=== PATIENT | female | born 1950 | race Hispanic/Latino ===

== ENCOUNTER 2018-12-31 12:41 | Emergency (ER) | payer OTHER ==
--- NOTE | 2018-12-31 13:30 | RAD REPORT ---
EXAM DESCRIPTION: CT - Head Brain Wo Cont - 12/31/2018 1:16 pm CLINICAL HISTORY: Breast cancer/generalize weakness COMPARISON: None. TECHNIQUE: Computed axial tomography of the head was obtained. IV contrast was not requested. All CT scans are performed using dose optimization technique as appropriate and may include automated exposure control or mA/KV adjustment according to patient size. FINDINGS: An intracranial bleed is not seen . The ventricles are normal in caliber. No extra-axial fluid collection is noted. Fluid within the sinuses/ mastoids is not seen. IMPRESSION: No acute intracranial abnormality is seen. If patient's symptoms persist MRI of the bra in would be recommended.
--- NOTE | 2018-12-31 13:57 | RAD REPORT ---
EXAM DESCRIPTION: [facility] Single View12/31/2018 1:25 pm CLINICAL HISTORY: fever COMPARISON: 2013 FINDINGS: The lungs appear clear of acute infiltrate. The heart is normal size IMPRESSION: No acute abnormalities displayed
[2018-12-31 14:05] LABS: Absolute Lymphocytes (CBC) 1.5 K/uL (0.7-4.9); Basophils % 0.6 % (0-1.3); Hematocrit 39.1 % (36.0-45.0); Lymphocytes % 14.3 % (15.3-44.8); MPV 7.7 fL (7.6-11.3); RBC Red Blood Cell Count 4.39 M/uL (3.86-4.86)
[2018-12-31 14:24] LABS: ALT/SGPT 32 U/L (12-78); AST/SGOT 23 U/L (15-37); Albumin 3.7 g/dL (3.4-5.0); Alkaline Phosphatase 56 U/L (45-117); BUN Blood Urea Nitrogen 24 mg/dL (7-18); Bicarbonate 28 mmol/L (21-32); Bilirubin Direct 0.1 mg/dL (0-0.2); Bilirubin Total 0.3 mg/dL (0.2-1.0); Glucose Level 130 mg/dL (74-106); NT PRO-BNP 207 pg/mL (<125); Potassium 3.7 mmol/L (3.5-5.1); Protein, Total 6.9 g/dL (6.4-8.2); Sodium Level 140 mmol/L (136-145); Troponin (Emerg Dept Use Only) < 0.02 ng/mL (0.0-0.045)
[2018-12-31 14:28] LABS: Protime INR 1.11
[2018-12-31 15:25] LABS: Urine Blood 2+ (NEG); Urine Glucose NEGATIVE (NEG); Urine Protein TRACE (NEG); Urine pH 5.5 (5.0-7.0)
[2018-12-31 15:27] LABS: Urine Bacteria LOADED /HPF (<20); Urine Culture Reflex Order REFLEXED
--- NOTE | 2018-12-31 16:20 | EDPHYS ---
Physician Documentation [facility] Name: Cyndee Nuñez Age: 68 yrs Sex: Female : 1950 Arrival Date: 12/31/2018 Time: 12:48 Bed 13 Private MD: ED Physician Ronn Bonilla HPI: 12/31 13:05 This 68 yrs old Female presents to ER via EMS with complaints of General cp Weakness. 13:05 general weakness. Onset: The symptoms/episode began/occurred today, 1 hour(s) ago. cp 13:05 Severity of symptoms: in the emergency department the symptoms have improved mildly. cp Family reports patient c/o feeling hot all over and then becoming weak all over. Historical: - Allergies: 12:52 No Known Allergies; em - Home Meds: 13:59 provastatin 20 mg daily [Active]; lisinopril 40 mg Oral tab 1 tab once daily [Active]; tw2 metformin 1,000 mg Oral tab daily [Active]; Levemir 25 units in the AM, 30 units in the PM subcutaneous [Active]; hydrochlorothiazide 12.5 mg Oral cap 1 cap once daily [Active]; glipizide 5 mg Oral tab 1 tab once daily [Active]; alendronate 70 mg Oral tab 1 tab monthly [Active]; - PMHx: 12:52 breast cancer; Diabetes - IDDM; Hypertension; ADD/ADHD; em - PSHx: 12:52 Mastectomy, Right; em - Immunization history:: Adult Immunizations up to date. - Social history:: Smoking status: Patient/guardian denies using tobacco. - Ebola Screening: : Patient negative for fever greater than or equal to 101.5 degrees Fahrenheit, and additional compatible Ebola Virus Disease symptoms Patient denies exposure to infectious person Patient denies travel to an Ebola-affected area in the 21 days before illness onset No symptoms or risks identified at this time. ROS: 13:10 Constitutional: Negative for body aches, chills, fatigue, fever, poor PO intake. cp 13:10 Eyes: Negative for injury, pain, redness, and discharge. cp 13:10 ENT: Negative for drainage from ear(s), ear pain, sore throat, difficulty swallowing, difficulty handling secretions. 13:10 Cardiovascular: Negative for chest pain, edema, palpitations. 13:10 Respiratory: Negative for cough, shortness of breath, wheezing. 13:10 Abdomen/GI: Negative for abdominal pain, nausea, vomiting, and diarrhea, constipation, black/tarry stool, rectal bleeding. 13:10 : Negative for urinary symptoms. 13:10 Neuro: Positive for dizziness, general weakness, Negative for altered mental status, headache, syncope, visual changes. 13:10 All other systems are negative. Exam: 13:15 Constitutional: The patient appears in no acute distress, alert, awake, cp non-diaphoretic, non-toxic, well developed, well nourished. 13:15 Head/Face: Normocephalic, atraumatic. cp 13:15 Eyes: Periorbital structures: appear normal, Pupils: equal, round, and reactive to light and accomodation, Extraocular movements: intact throughout, Conjunctiva: normal, no exudate, no injection, Sclera: no appreciated abnormality, Lids and lashes: appear normal, bilaterally. 13:15 ENT: External ear(s): are unremarkable, Ear canal(s): are normal, clear, TM's: bulging, is not appreciated, bilaterally, dullness, bilaterally, erythema, is not appreciated, bilaterally, Nose: is normal, Mouth: Lips: moist, Oral mucosa: pink and intact, moist, Posterior pharynx: is normal, airway is patent, no erythema, no exudate. 13:15 Neck: ROM/movement: is normal, is supple, without pain, no range of motions limitations, no nuchal rigidity. 13:15 Chest/axilla: Inspection: normal, Palpation: is normal, no crepitus, no tenderness. 13:15 Cardiovascular: Rate: normal, Rhythm: regular, Edema: is not appreciated, JVD: is not appreciated. 13:15 Respiratory: the patient does not display signs of respiratory distress, Respirations: normal, no use of accessory muscles, no retractions, no splinting, no tachypnea, labored breathing, is not present, Breath sounds: are clear throughout, no decreased breath sounds, no stridor, no wheezing. 13:15 Abdomen/GI: Inspection: abdomen appears normal, Bowel sounds: active, all quadrants, Palpation: abdomen is soft and non-tender, in all quadrants, rebound tenderness, is not appreciated, voluntary guarding, is not appreciated, involuntary guarding, is not appreciated. 13:15 Back: pain, is absent, ROM is normal. 13:15 Skin: no rash present. 13:15 Neuro: Orientation: to person, place \T\ time. Mentation: is normal, Cerebellar function: is grossly normal, Motor: moves all fours, strength is normal, Sensation: is normal. 14:15 ECG was reviewed by the Attending Physician. cp Vital Signs: 12:52 BP 107 / 49; Pulse 71; Resp 18; Temp 98.8(O); Pulse Ox 100% on R/A; Weight 72.57 kg; em Height 5 ft. 4 in. (162.56 cm) (M); Pain 0/10; 13:59 BP 131 / 58; Pulse 71; Resp 17; Pulse Ox 97% on R/A; tw2 15:04 BP 110 / 47; Pulse 63; Resp 17; Pulse Ox 96% on R/A; tw2 15:57 BP 128 / 75; Pulse 66; Resp 17; Temp 98.1; Pulse Ox 97% on R/A; mh5 16:32 BP 122 / 71; Pulse 74; Resp 17; Pulse Ox 97% on R/A; tw2 12:52 Body Mass Index 27.46 (72.57 kg, 162.56 cm) em MDM: 12:56 Patient medically screened. cp 14:00 Differential Diagnosis cardiac arrythmia, electrolyte abnormality, dehydration. cp 16:18 Data reviewed: vital signs, nurses notes, lab test result(s), EKG, radiologic studies, cp CT scan, plain films, and as a result, I will discharge patient. 16:18 Test interpretation: by ED physician or midlevel provider: ECG, plain radiologic cp studies. Counseling: I had a detailed discussion with the patient and/or guardian regarding: the historical points, exam findings, and any diagnostic results supporting the discharge/admit diagnosis, lab results, radiology results, to return to the emergency department if symptoms worsen or persist or if there are any questions or concerns that arise at home. Response to treatment: the patient's symptoms have markedly improved after treatment, and as a result, I will discharge patient. ED course: VSS. Patient reports symptoms improved. Will discharge to home for continued monitoring. 12/31 13:01 Order name: Basic Metabolic Panel; Complete Time: 14:26 cp 12/31 14:26 Interpretation: Normal except: GLUC 130; BUN 24; CRE 1.32; GFR 40. cp 12/31 13:01 Order name: CBC with Diff; Complete Time: 14:26 cp 12/31 14:26 Interpretation: Normal except: AFTAB% 77.3; LYM% 14.3. cp 12/31 13:01 Order name: LFT's; Complete Time: 14:26 cp 12/31 13:01 Order name: Magnesium; Complete Time: 14:26 cp 12/31 13:01 Order name: NT PRO-BNP; Complete Time: 14:26 cp 12/31 14:26 Interpretation: Abnormal: NT PRO-BNP 207. cp 12/31 13:01 Order name: PT-INR; Complete Time: 15:38 cp 12/31 13:01 Order name: Troponin (emerg Dept Use Only); Complete Time: 14: cp 12/31 14:27 Interpretation: TROPED < 0.02; Reviewed. 12/31 13:01 Order name: XRAY Chest (1 view); Complete Time: 14:26 cp 12/31 13:01 Order name: Urine Microscopic Only; Complete Time: 15:38 cp 12/31 13:02 Order name: CT Head Brain wo Cont; Complete Time: 14:26 cp 12/31 15:17 Order name: Urine Dipstick--Ancillary (enter results); Complete Time: 15:38 12/31 15:28 Order name: Urine Culture EDOH 12/31 13:01 Order name: Cardiac monitoring; Complete Time: 14:10 cp 12/31 13:01 Order name: EKG - Nurse/Tech; Complete Time: 14:09 cp 12/31 13:01 Order name: IV Saline Lock; Complete Time: 14:09 cp 12/31 13:01 Order name: Labs collected and sent; Complete Time: 14:09 cp 12/31 13:01 Order name: O2 Per Protocol; Complete Time: 14:09 cp 12/31 13:01 Order name: O2 Sat Monitoring; Complete Time: 14:09 12/31 13:01 Order name: Urine Dipstick-Ancillary (obtain specimen); Complete Time: 15:26 cp EC:15 Rate is 58 beats/min. Rhythm is regular. HI interval is normal. QRS interval is normal. cp QT interval is normal. T waves are Inverted in lead V2. Interpreted by me. Reviewed by me. Administered Medications: 15:42 CANCELLED (ivp available only): Rocephin - (cefTRIAXone) 1 grams IVPB once over 30 tw2 mins; (mix in 50 mL NS) 15:50 Drug: Rocephin 1 grams Route: IV; Rate: bolus; Site: left forearm; tw2 15:55 Follow up: Response: No adverse reaction; IV Status: Completed infusion tw2 Disposition: 12/31/18 16:19 Discharged to Home. Impression: Urinary tract infection, site not specified. - Condition is Stable. - Discharge Instructions: Urinary Tract Infection, Adult. - Prescriptions for Augmentin 875- 125 mg Oral Tablet - take 1 tablet by ORAL route every 12 hours for 7 days; 14 tablet. - Medication Reconciliation Form, Thank You Letter, Antibiotic Education, Prescription Opioid Use form. - Follow up: Private Physician; When: 1 - 2 days; Reason: Recheck today's complaints. - Problem is new. - Symptoms have improved. Addendum: 01/02/2019 08:34 Co-signature as Attending Physician, Ronn Bonilla MD I agree with the assessment and c perez plan of care. Signatures: Dispatcher [employer] [facility] Ronn Bonilla MD MD cha Munoz, Edgar, 3RD MATE 3RD MATE em Ronn Cotto PA PA cp Wise, Tara, RN RN tw2 Corrections: (The following items were deleted from the chart) 12/31 15:43 15:39 Rocephin - (cefTRIAXone) 1 grams IVPB once over 30 mins; (mix in 50 mL NS) tw2 ordered. cp 16:07 15:39 Procalcitonin+C.LAB.BRZ ordered. EDOH EDMS 16:07 15:39 LACTATE+C.LAB.BRZ ordered. EDOH EDMS 16:33 16:19 12/31/2018 16:19 Discharged to Home. Impression: Urinary tract infection, site tw2 not specified. Condition is Stable. Forms are Medication Reconciliation Form, Thank You Letter, Antibiotic Education, Prescription Opioid Use. Follow up: Private Physician; When: 1 - 2 days; Reason: Recheck today's complaints. Problem is new. Symptoms have improved. cp
--- NOTE | 2018-12-31 16:20 | ER ---
Nurse's Notes [facility] Name: Cyndee Nuñez Age: 68 yrs Sex: Female : 1950 Arrival Date: 12/31/2018 Time: 12:48 Bed 13 Private MD: Diagnosis: Urinary tract infection, site not specified Presentation: 12/31 12:49 Presenting complaint: EMS states: called out for feeling hot and weakness that started em at noon, symptoms has resolved, denies pain, denies syncope. Transition of care: patient was not received from another setting of care. Onset of symptoms was December 31, 2018. Risk Assessment: Do you want to hurt yourself or someone else? Patient reports no desire to harm self or others. Initial Sepsis Screen: Does the patient meet any 2 criteria? No. Patient's initial sepsis screen is negative. Does the patient have a suspected source of infection? No. Patient's initial sepsis screen is negative. Care prior to arrival: None. 12:49 Method Of Arrival: EMS: [facility] em 12:55 Acuity: ZEE 3 tw2 Historical: - Allergies: 12:52 No Known Allergies; em - Home Meds: 13:59 provastatin 20 mg daily [Active]; lisinopril 40 mg Oral tab 1 tab once daily [Active]; tw2 metformin 1,000 mg Oral tab daily [Active]; Levemir 25 units in the AM, 30 units in the PM subcutaneous [Active]; hydrochlorothiazide 12.5 mg Oral cap 1 cap once daily [Active]; glipizide 5 mg Oral tab 1 tab once daily [Active]; alendronate 70 mg Oral tab 1 tab monthly [Active]; - PMHx: 12:52 breast cancer; Diabetes - IDDM; Hypertension; ADD/ADHD; em - PSHx: 12:52 Mastectomy, Right; em - Immunization history:: Adult Immunizations up to date. - Social history:: Smoking status: Patient/guardian denies using tobacco. - Ebola Screening: : Patient negative for fever greater than or equal to 101.5 degrees Fahrenheit, and additional compatible Ebola Virus Disease symptoms Patient denies exposure to infectious person Patient denies travel to an Ebola-affected area in the 21 days before illness onset No symptoms or risks identified at this time. Screenin:59 Abuse screen: Denies threats or abuse. Nutritional screening: No deficits noted. tw2 Tuberculosis screening: No symptoms or risk factors identified. Fall Risk Secondary diagnosis (15 points) impaired mobility. Assessment: 13:57 General: Appears in no apparent distress. Behavior is calm, cooperative, appropriate tw2 for age. Pain: Denies pain. Neuro: Level of Consciousness is awake, alert, obeys commands, Oriented to person, place, time, situation, Reports weakness. Cardiovascular: Denies chest pain, shortness of breath, Heart tones S1 S2 Patient's skin is warm and dry. Respiratory: Airway is patent Respiratory effort is even, labored, Respiratory pattern is regular, symmetrical, Breath sounds are clear bilaterally. GI: No signs and/or symptoms were reported involving the gastrointestinal system. Abdomen is round non-distended, Bowel sounds present X 4 quads. : No signs and/or symptoms were reported regarding the genitourinary system. EENT: No signs and/or symptoms were reported regarding the EENT system. Derm: No signs and/or symptoms reported regarding the dermatologic system. Musculoskeletal: Range of motion: intact in all extremities. 15:03 Reassessment: Patient appears in no apparent distress at this time. No changes from tw2 previously documented assessment. Patient and/or family updated on plan of care and expected duration. Pain level reassessed. Patient is alert, oriented x 3, equal unlabored respirations, skin warm/dry/pink. 16:32 Reassessment: Patient appears in no apparent distress at this time. No changes from tw2 previously documented assessment. Patient and/or family updated on plan of care and expected duration. Pain level reassessed. Patient is alert, oriented x 3, equal unlabored respirations, skin warm/dry/pink. Vital Signs: 12:52 BP 107 / 49; Pulse 71; Resp 18; Temp 98.8(O); Pulse Ox 100% on R/A; Weight 72.57 kg; em Height 5 ft. 4 in. (162.56 cm) (M); Pain 0/10; 13:59 BP 131 / 58; Pulse 71; Resp 17; Pulse Ox 97% on R/A; tw2 15:04 BP 110 / 47; Pulse 63; Resp 17; Pulse Ox 96% on R/A; tw2 15:57 BP 128 / 75; Pulse 66; Resp 17; Temp 98.1; Pulse Ox 97% on R/A; mh5 16:32 BP 122 / 71; Pulse 74; Resp 17; Pulse Ox 97% on R/A; tw2 12:52 Body Mass Index 27.46 (72.57 kg, 162.56 cm) em ED Course: 12:48 Patient arrived in ED. em 12:48 Bed in low position. Call light in reach. Adult w/ patient. teletypesetter monitor on. Pulse tw2 ox on. NIBP on. 12:49 Jessica Parmar RN is Primary Nurse. tw2 12:51 Ronn Cotto PA is PHCP. cp 12:51 Ronn Bonilla MD is Attending Physician. cp 12:52 Arm band placed on. em 12:55 Triage completed. tw2 13:16 CT completed. Patient tolerated procedure well. Patient moved to radiology. mw3 13:16 CT Head Brain wo Cont In Process Unspecified. EDMS 13:25 XRAY Chest (1 view) In Process Unspecified. EDMS 13:56 Missed attempt(s): 22 gauge in left wrist. Bleeding controlled, band aid applied, tw2 catheter tip intact. Inserted saline lock: 22 gauge in left forearm, using aseptic technique. Blood collected. 15:26 Urine Microscopic Only Sent. tw2 16:05 No provider procedures requiring assistance completed. tw2 16:33 IV discontinued, intact, bleeding controlled, No redness/swelling at site. Pressure tw2 dressing applied. Administered Medications: 15:42 CANCELLED (ivp available only): Rocephin - (cefTRIAXone) 1 grams IVPB once over 30 tw2 mins; (mix in 50 mL NS) 15:50 Drug: Rocephin 1 grams Route: IV; Rate: bolus; Site: left forearm; tw2 15:55 Follow up: Response: No adverse reaction; IV Status: Completed infusion tw2 Outcome: 16:19 Discharge ordered by MD. cp 16:32 Discharged to home ambulatory, with family. tw2 16:32 Condition: stable 16:32 Discharge instructions given to patient, family, Instructed on discharge instructions, follow up and referral plans. medication usage, Demonstrated understanding of instructions, follow-up care, medications, Prescriptions given X 1. 16:33 Patient left the ED. tw2 Addendum: 01/03/2019 08:18 Addendum: Culture Results: Positive urine culture. No further action required. Bacteria a a5 sensitive to prescribed antibiotic. Signatures: Dispatcher [employer] Cy Fagan, PODIATRIC ASSISTANT PODIATRIC ASSISTANT Lorri De Luna, RN RN aa5 Ronn Cotto PA PA cp Wise, Tara RN RN tw2 Cyndee Hermosillo 5 Ilana Quiñones 3
[2018-12-31 16:41] VITALS: TEMP 98.1; O2SAT 97
[2018-12-31 16:43] VITALS: BP 122/71
== END 2018-12-31 16:33 | disposition home or self-care (01) ==
LOC: ER 12:41
DX: N39.0 Urinary tract infection, site not specified (principal); E11.9 Type 2 diabetes mellitus without complications; I10 Essential (primary) hypertension; Z85.3 Personal history of malignant neoplasm of breast
CPT/HCPCS: 36415; 70450; 71045; 80048; 80076; 81003; 81015; 83735; 83880; 84484; 85025; 85610; 87077; 87086; 87088; 87186; 96374; 99285

== ENCOUNTER 2023-02-28 12:18 | Emergency (ER) | payer OTHER ==
--- OUTSIDE RECORDS SUMMARY | 2023-02-28 12:23 | XMS REPORT | Continuity of Care Document ---
:1950 Author Organization [facility] t Address [address] [place] [address] [place] [id number] Care Team Providers Name Role Phone MARY MONTAGUE Primary Care Physician Unavailable MK HONG Attending Clinician Unavailable KATHRYN ALLISON Attending Clinician Unavailable [email or web address] Attending Clinician Unavailable BOAZ BELLA Attending Clinician Unavailable LAB90 Attending Clinician Unavailable 39, HOLTER Attending Clinician Unavailable Kathryn Allison DO Attending Clinician Gustavo GARCIA Attending Clinician Unavailable Gustavo Diaz Attending Clinician Cinthia Landeros Attending Clinician Damian Benito MD Attending Clinician DAMIAN BENITO Attending Clinician Unavailable MK HONG Admitting Clinician Unavailable ENRIQUE_[email or web address]_S Admitting Clinician Unavailable Gustavo GARCIA Admitting Clinician Unavailable Payers Payer Name Policy Type Policy Number Effective Date Expiration Date [place] gore [facility] [id number] 2019 ALL 00:00:00 WELLCARE TXP CLASSIC 7 [id number] 2021 NO PREMIUM R2T 00:00:00 [facility] [place] [id number] 2020 00:00:00 [facility] [id number] 2019 00:00:00 Problems Condition Condition Condition Status Onset Resolution Last Treating Co mments Source Name Details Category Date Date Treatment Clinician Date Well adult Well adult Disease Active Gustavo westfall exam exam 4-18 Seybold 00:00: - 00 Externa l Overweight Overweight Disease Active Gustavo westfall (BMI (BMI 4-18 Seybold 25.0-29.9) 25.0-29.9) 00:00: - 00 Externa l History of History of Disease Active 2021-04 Gustavo westfall tobacco tobacco 1-04 Seybold use use 00:00: - 00 Externa l PVD PVD Disease Active 2021-04 Sindy (periphera (periphera 0-12 Se ybold l vascular l vascular 00:00: - disease) disease) 00 [employer] a l 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 depressive depressive l disorder disorder without without prior prior episode episode Acute Acute Disease Active Sindy non-recurr non-recurr 8-30 Se ybold ent ent 00:00: - maxillary maxillary 00 Exte rna sinusitis sinusitis l Gastroesop Gastroesop Disease Active Gustavo westfall hageal hageal 6-29 Seybold reflux reflux 00:00: - disease disease 00 Externa without without l esophagiti esophagiti s s History of History of Disease Active Gustavo westfall recurrent recurrent 4-21 Seyb old UTI UTI 00:00: - (urinary (urinary 00 [employer] a tract tract l infection) infection) Type 2 Type 2 Disease Active Sindy diabetes diabetes 2-18 Seybol d mellitus, mellitus, 00:00: with with 00 long-term long-term current current use of use of insulin insulin Primary Primary Disease Active Sindy hypertensi hypertensi 2-18 Se ybold on on 00:00: - 00 Externa l 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 2-18 Se ybold athy athy 00:00: - associated associated 00 Ex terna with type with type l 2 diabetes 2 diabetes mellitus mellitus 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 K elsey d d 2-18 Seybold osteoporos osteoporos 00:00: - is without is without 00 Ex terna current current l pathologic pathologic al al fracture fracture 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 Seybold disease disease 00:00: - involving involving 00 Exte rna chipewwa chipewwa l coronary coronary artery artery without without angina angina pectoris pectoris 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 Seybold disease disease 00:00: - involving involving 00 Exte rna chipewwa chipewwa l coronary coronary artery of artery of chipewwa chipewwa heart heart without without angina angina pectoris pectoris Malignant Malignant Disease Active Suresh sey neoplasm neoplasm 2-18 Seybol d of [place] 00:00: - portion of portion of 00 Ex terna right right l breast in breast in female, female, estrogen estrogen receptor receptor positive positive Mixed Mixed Disease Active Sindy hyperlipid hyperlipid 2-18 Se ybold emia emia 00:00: - 00 Externa l PAD PAD Disease Recurre [facility] (periphera (periphera nce 5-15 Jaimie kes l artery l artery 00:00: Medica l disease) disease) 00 Center No known No known Disease Unive rs active active ity of problems problems [facility] Allergies, Adverse Reactions, Alerts Allergy Allergy Status Severity Reaction(s) Onset Inactive Treating Comm ents Source Name Type Date Date Clinician NO KNOWN Allergy Active [facility] NO KNOWN Drug Active [facility] ALLERGRACHAEL Class ity of S [facility] Social History Social Habit Start Date Stop Date Quantity Comments Source [facility] to [facility] History SDOH [facility] Alcohol Binge Medical Z[facility] History SDOH [facility] Alcohol Std Drinks [facility] History SDOH Sindy Yao ld - Alcohol Comment External Gender identity Sindy Se donovan - External History of tobacco Cigarette Smoker Sindy Tran - use External Sexual orientation [facility] History of Social 2022-07-21 2022-07-21 Sindy Tran - function 00:00:00 00:00:00 External Tobacco use and 2022-07-21 2022-07-21 Smokeless Sindy donovan - exposure 00:00:00 00:00:00 tobacco non-user External Education 2021-05-23 2021-05-23 6 Sindy Tran - 00:00:00 00:00:00 External Alcohol intake 2019-08-21 2019-08-[address] [facility] 00:[facility] 00[facility]00 non-drinker of Medical Ce nter alcohol (finding) Cigarettes smoked 2019-08-14 2019-08-[address] [facility] current (pack per 00:00:00 00:00:00 [facility] Center day) - Reported Cigarette 2019-08-14 2019-08-[address] [facility] pack-years 00:00:00 00:00:00 [facility] History SDOH 2019-08-14 2019-08-[address] [facility] Alcohol Frequency 00:00:00 00:00:00 [facility] Sex [birth year] VENECIA Blancas 00:00:00 00:00:00 [facility] Smoking Status Start Date Stop Date Source Ex-smoker 2022-07-21 00:00:00 2022-07-21 00:00:00 Sindy rodrigez - External Never smoker [facility] Medications Ordered Filled Start Stop Current Ordering Indication Dosage Frequency Signature Comments Components Source Medication Medication Date Date Medication? Clinician (SIG) Name Name Anastrozole Yes 1mg Take 1 Serena ey 1 MG oral 8-21 tablet (1 Seybo ld Tablet 07:57: mg total) - 01 by mouth Externa daily. l Aspirin 81 Yes 81mg Take 1 Kelse y MG oral 8-21 tablet (81 Seybol d Tablet 07:57: mg total) - Delayed 01 by mouth Externa Response daily. l Alendronate 2022-0 Yes [id number] TAKE 1 Sindy Sodium 70 8-14 TABLET(70 Seybo ld MG oral 00:00: MG) BY - Tablet 00 MOUTH Externa EVERY 7 l DAYS hydroCHLORO 2022-0 Yes [id number] 12.5mg TAKE 1 Sindy thiazide 8-06 CAPSULE(12 Seybo ld 12.5 MG 00:00: .5 MG) BY - oral 00 MOUTH Externa Capsule EVERY l MORNING Metformin 2022-0 Yes [id number] TAKE 1 K elsey HCl 1000 MG 8-04 TABLET(100 Se ybold oral Tablet 00:00: 0 MG) BY - 00 MOUTH IN Externa THE l MORNING AND IN THE EVENING WITH MEALS Lisinopril 2022-0 Yes [id number] 40mg Take 1 K elsey 40 MG oral 7-27 tablet (40 Sey bold Tablet 00:00: mg total) - 00 by mouth Externa daily l Pravastatin 2022-0 Yes [id number] 80mg Take 1 Sindy Sodium 80 7-27 tablet (80 Seyb old MG oral 00:00: mg total) - Tablet 00 by mouth Externa daily l Omeprazole 2022-0 Yes [id number] TAKE 1 Sindy 40 MG oral 7-05 CAPSULE(40 Sey bold Delayed 00:00: MG) BY - Release 00 MOUTH Externa Capsule DAILY l Amlodipine 2022-0 Yes [id number] TAKE 1 K elsey Besylate 7-05 TABLET(5 Seybold (NORVASC) 5 00:00: MG) BY - MG oral 00 MOUTH Externa Tablet DAILY l Clopidogrel 2022-0 Yes [id number] 75mg Take 1 Sindy Bisulfate 6-22 tablet (75 Seyb old (Plavix) 75 00:00: mg total) - MG oral 00 by mouth Externa Tablet daily l Citalopram 2022-0 Yes [id number] TAKE 1 K elsey Hydrobromid 6-20 TABLET(10 Sey bold e 10 MG 00:00: MG) BY - oral Tablet 00 MOUTH Externa DAILY l Anastrozole 2022-0 Yes 1mg Take 1 Serena ey 1 MG oral 4-18 tablet (1 Seybo ld Tablet 08:03: mg total) - 27 by mouth Externa daily l Aspirin 81 2023-0 Yes 81mg Take 1 Kelse y MG oral 4-18 tablet (81 Seybol d Tablet 08:03: mg total) - Delayed 27 by mouth Externa Response daily l Citalopram Yes [id number] TAKE 1 K elsey Hydrobromid 3-22 TABLET(10 Sey bold e 10 MG 00:00: MG) BY - oral Tablet 00 MOUTH Externa DAILY l Insulin Yes [id number] 35 units Ke lsey Glargine 2-27 subcu Seybold (Lantus 00:00: every a.m. - SoloStar) 00 and 25 Externa 100 UNIT/ML units l subcutaneou subcu s Solution every p.m. Pen-injecto r Insulin Yes [id number] 35 units Ke lsey Glargine 2-27 subcu Seybold (Lantus 00:00: every a.m. - SoloStar) 00 and 25 Externa 100 UNIT/ML units l subcutaneou subcu s Solution every p.m. Pen-injecto r Alendronate Yes [id number] TAKE 1 Sindy Sodium 70 2-09 TABLET(70 Seybo ld MG oral 00:00: MG) BY - Tablet 00 MOUTH Externa EVERY 7 l DAYS Pravastatin Yes [id number] 80mg Take 1 Sindy Sodium 80 1-20 tablet (80 Seyb old MG oral 00:00: mg total) - Tablet 00 by mouth Externa daily l Anastrozole Yes 1mg Take 1 mg K elsey 1 MG oral 1-18 by mouth Seybol d Tablet 08:36: daily - 07 Externa l Aspirin 81 Yes 81mg Take 81 mg K elsey MG oral 1-18 by mouth Seybold Tablet 08:36: daily - Delayed 07 Externa Response l Citalopram 2021-04 Yes [id number] TAKE 1 K elsey Hydrobromid 2-12 TABLET(10 Sey bold e 10 MG 00:00: MG) BY - oral Tablet 00 MOUTH Externa DAILY l Clopidogrel 2021-04 Yes 75mg Take 1 Serena ey Bisulfate 1-07 tablet (75 Seyb old (Plavix) 75 00:00: mg total) - MG oral 00 by mouth Externa Tablet daily l Clopidogrel 2021-04 Yes 75mg Take 1 Serena ey Bisulfate 1-07 tablet (75 Seyb old (Plavix) 75 00:00: mg total) - MG oral 00 by mouth Externa Tablet daily l Anastrozole 2021-04 Yes 1mg Take 1 mg K elsey 1 MG oral 0-12 by mouth Seybol d Tablet 10:13: daily - 00 Externa l Pravastatin Yes [id number] 40mg Take 1 Sindy Sodium 40 9-14 tablet (40 Seyb old MG oral 00:00: mg total) - Tablet 00 by mouth Externa daily l Pravastatin Yes [id number] 40mg Take 1 Sindy Sodium 40 9-14 tablet (40 Seyb old MG oral 00:00: mg total) - Tablet 00 by mouth Externa daily l Citalopram Yes [id number] 10mg Take 1 K elsey Hydrobromid 9-14 tablet (10 Se ybold e 10 MG 00:00: mg total) - oral Tablet 00 by mouth Exte rna daily l Benzonatate Yes [id number] 100mg Q.[id number] Take 1 Sindy (Tessalon 8-30 [id number] capsule S eybold Perles) 100 00:00: 3D (100 mg - MG oral 00 total) by Externa Capsule mouth 3 l times daily as needed for cough Benzonatate Yes [id number] 100mg Q.[id number] Take 1 Sindy (Tessalon 8-30 [id number] capsule S eybold Perles) 100 00:00: 3D (100 mg - MG oral 00 total) by Externa Capsule mouth 3 l times daily as needed for cough Benzonatate 2022- No [id number] 100mg Q.[id number] Take 1 Sindy (Tessalon 8-30 04-18 [id number] capsule Seybold Perles) 100 00:00: 00:00 3D (100 mg - MG oral 00 :00 total) by Externa Capsule mouth 3 l times daily as needed for cough Amoxicillin 0 2021- No [id number] 1{tbl} Take 1 Sindy -Pot 8-30 10-12 tablet by Seybold Clavulanate 00:00: 00:00 mouth 2 - 875-125 MG 00 :00 times Externa oral Tablet daily l Alendronate 2021-0 Yes [id number] 70mg Take 1 Sindy Sodium 70 8-10 tablet (70 Seyb old MG oral 00:00: mg total) - Tablet 00 by mouth Externa every 7 l days Metformin 2021-0 Yes [id number] 1000mg Take 1 Sindy HCl 1000 MG 8-10 tablet Seybol d oral Tablet 00:00: (1,000 mg - 00 total) by Externa mouth in l the morning and 1 tablet (1,000 mg total) in the evening. Take with meals. Lisinopril 2021-0 Yes [id number] 40mg Take 1 K elsey 40 MG oral 8-10 tablet (40 Sey bold Tablet 00:00: mg total) - 00 by mouth Externa daily l hydroCHLORO 2021-0 Yes [id number] 12.5mg Take 1 Sindy thiazide 8-10 capsule Seybold 12.5 MG 00:00: (12.5 mg - oral 00 total) by Externa Capsule mouth l every morning Metformin 2021-0 Yes [id number] 1000mg Take 1 Sindy HCl 1000 MG 8-10 tablet Seybol d oral Tablet 00:00: (1,000 mg - 00 total) by Externa mouth in l the morning and 1 tablet (1,000 mg total) in the evening. Take with meals. Lisinopril 2021-0 Yes [id number] 40mg Take 1 K elsey 40 MG oral 8-10 tablet (40 Sey bold Tablet 00:00: mg total) - 00 by mouth Externa daily l hydroCHLORO 2-0 Yes [id number] 12.5mg Take 1 Sindy thiazide 8-10 capsule Seybold 12.5 MG 00:00: (12.5 mg - oral 00 total) by Externa Capsule mouth l every morning Alendronate 2-0 Yes [id number] 70mg Take 1 Sindy Sodium 70 8-10 tablet (70 Seyb old MG oral 00:00: mg total) - Tablet 00 by mouth Externa every 7 l days Metformin 2-0 Yes [id number] 1000mg Take 1 Sindy HCl 1000 MG 8-10 tablet Seybol d oral Tablet 00:00: (1,000 mg - 00 total) by Externa mouth in l the morning and 1 tablet (1,000 mg total) in the evening. Take with meals. Lisinopril Yes [id number] 40mg Take 1 K elsey 40 MG oral 8-10 tablet (40 Sey bold Tablet 00:00: mg total) - 00 by mouth Externa daily l hydroCHLORO Yes [id number] 12.5mg Take 1 Sindy thiazide 8-10 capsule Seybold 12.5 MG 00:00: (12.5 mg - oral 00 total) by Externa Capsule mouth l every morning Insulin Yes [id number] INJECT 35 Sindy Detemir 7-29 UNITS Seybold (Levemir 00:00: UNDER THE - FlexTouch) 00 SKIN EVERY Ext jeremy 100 UNIT/ML MORNING l subcutaneou AND 25 s Solution UNITS Pen-injecto EVERY r EVENING Insulin Yes [id number] INJECT 35 Sindy Detemir 7-29 UNITS Seybold (Levemir 00:00: UNDER THE - FlexTouch) 00 SKIN EVERY Ext jeremy 100 UNIT/ML MORNING l subcutaneou AND 25 s Solution UNITS Pen-injecto EVERY r EVENING Omeprazole 2021-0 Yes [id number] 40mg Take 1 Sindy 40 MG oral 6-29 capsule Seybol d Delayed 00:00: (40 mg - Release 00 total) by Externa Capsule mouth l daily Amlodipine Yes [id number] 5mg Take 1 K elsey Besylate 5 6-29 tablet (5 Seyb old MG oral 00:00: mg total) - Tablet 00 by mouth Externa daily l Omeprazole Yes [id number] 40mg Take 1 Sindy 40 MG oral 6-29 capsule Seybol d Delayed 00:00: (40 mg - Release 00 total) by Externa Capsule mouth l daily Amlodipine 2021-0 Yes [id number] 5mg Take 1 K elsey Besylate 5 6-29 tablet (5 Seyb old MG oral 00:00: mg total) - Tablet 00 by mouth Externa daily l Omeprazole 0 Yes [id number] 40mg Take 1 Sindy 40 MG oral 6-29 capsule Seybol d Delayed 00:00: (40 mg - Release 00 total) by Externa Capsule mouth l daily Amlodipine Yes [id number] 5mg Take 1 K elsey Besylate 5 6-29 tablet (5 Seyb old MG oral 00:00: mg total) - Tablet 00 by mouth Externa daily l glipiZIDE 5 2021-0 2021- No [id number] 5mg Take 1 Sindy MG oral 6-29 10-12 tablet (5 Seybol d Tablet 00:00: 00:00 mg total) - 00 :00 by mouth Externa daily l (before a meal) Dorzolamide Yes USE 1 DROP Sindy HCl 2 % 6-16 BOTH EYES Seybold ophthalmic 00:00: EVERY 12 - Solution 00 HOURS Externa l Dorzolamide Yes USE 1 DROP Sindy HCl 2 % 6-16 BOTH EYES Seybold ophthalmic 00:00: EVERY 12 - Solution 00 HOURS Externa l Dorzolamide 0 Yes USE 1 DROP Sindy HCl 2 % 6-16 BOTH EYES Seybold ophthalmic 00:00: EVERY 12 - Solution 00 HOURS Externa l Dorzolamide 0 Yes USE 1 DROP Sindy HCl 2 % 6-16 BOTH EYES Seybold ophthalmic 00:00: EVERY 12 - Solution 00 HOURS Externa l Lisinopril 0 2021- No 40mg Take 40 mg Sindy 40 MG oral 2-18 02-18 by mouth Seyb old Tablet 15:07: 00:00 daily 47 :00 Metformin 2021-0 2021- No 1000mg Take 1,000 Sindy HCl 1000 MG 2-18 02-18 mg by Seybol d oral Tablet 15:07: 00:00 mouth 47 :00 Alendronate 2021-0 2021- No 70mg Take 70 mg Sindy Sodium 70 2-18 02-18 by mouth Seybo ld MG oral 15:07: 00:00 every 7 Tablet 47 :00 days glipiZIDE 5 0 Yes 5mg Take 5 mg K elsey MG oral 2-18 by mouth Seybold Tablet 14:17: 55 Anastrozole 0 Yes 1mg Take 1 mg K elsey 1 MG oral 2-18 by mouth Seybol d Tablet 14:17: daily 55 Pravastatin 2021-0 Yes 40mg Take 40 mg Sindy Sodium 40 2-18 by mouth Seybol d MG oral 14:17: daily Tablet 55 hydroCHLORO Yes [id number] 12.5mg Take 1 Sindy thiazide 2-18 capsule Seybold 12.5 MG 00:00: (12.5 mg oral 00 total) by Capsule mouth every morning Alendronate Yes [id number] 70mg Take 1 Sindy Sodium 70 2-18 tablet (70 Seyb old MG oral 00:00: mg total) Tablet 00 by mouth every 7 days Metformin Yes [id number] 1000mg Take 1 Sindy HCl 1000 MG 2-18 tablet Seybol d oral Tablet 00:00: (1,000 mg 00 total) by mouth 2 times daily (with meals) Lisinopril Yes [id number] 40mg Take 1 K elsey 40 MG oral 2-18 tablet (40 Sey bold Tablet 00:00: mg total) 00 by mouth daily Insulin Yes [id number] 35 units K elsey Detemir 2-18 SC every Seybold (Levemir 00:00: am and 25 FlexTouch) 00 units SC 100 UNIT/ML every pm subcutaneou s Solution Pen-injecto r Amlodipine Yes 5mg Take 5 mg Ke lsey Besylate 5 2-13 by mouth Seybo ld MG oral 00:00: daily Tablet 00 Omeprazole 2021- No Sindy 40 MG oral 2-13 02-18 Seybold Delayed 00:00: 00:00 Release 00 :00 Capsule Lantus 2021- No INJECT 35 Kelse y SoloStar 2-07 02-18 UNITS Seybold 100 UNIT/ML 00:00: 00:00 UNDER THE subcutaneou 00 :00 SKIN EVERY s Solution MORNING Pen-injecto AND 25 r UNITS EVERY NIGHT AT BEDTIME DIRECTED cephALEXin 2020-04- No 500mg 500 mg, Un kira (KEFLEX) 2-26 12-26 Oral, ity of capsule 500 23:45: 22:46 [place], 1 [place] 00 :00 dose, On [facility] Branch 03/30/21 at 1745, JENNY
Re ason for Anti-Infec tive: Documented Infection< br>Documen diane Infection Site: Urine
D uration of Therapy: 10 days cephALEXin 2020-04 Yes [id number] 500mg Take 1 Univers (KEFLEX) 2-26 capsule by ity o f 500 mg 00:00: mouth 3 [place] capsule 00 (three) Medical times Branch daily. Cephalexin 2020-04- No 500mg Take 500 K elsey 500 MG oral 2-26 02-18 mg by Seybol d Capsule 00:00: 00:00 mouth 3 00 :00 times daily cephALEXin 2020-04- No [id number] 500mg Take 1 Univers (KEFLEX) 2-26 12-26 capsule by ity of 500 mg 00:00: 00:00 mouth 3 [place] capsule 00 :00 (three) Medical times Branch daily for 10 days. Gabapentin 2020-04 Yes 300mg Take 300 Ke lsey 300 MG oral 1-26 mg by Seybold Capsule 00:00: mouth 2 - 00 times Externa daily l Gabapentin 2020-04 Yes 300mg Take 1 Serena ey 300 MG oral 1-26 capsule Seybo ld Capsule 00:00: (300 mg - 00 total) by Externa mouth 2 l times daily Gabapentin 2020-04 Yes 300mg Take 1 Serena ey 300 MG oral 1-26 capsule Seybo ld Capsule 00:00: (300 mg - 00 total) by Externa mouth 2 l times daily. Gabapentin 2020-04 Yes 300mg Take 300 Ke lsey 300 MG oral 1-26 mg by Seybold Capsule 00:00: mouth 2 00 times daily Gabapentin 2020-04 Yes 300mg Take 300 Ke lsey 300 MG oral 1-26 mg by Seybold Capsule 00:00: mouth 2 - 00 times Externa daily l hydroCHLORO 2020-04- No 1{capsu Take 1 Sindy thiazide - 02-18 le} capsule by Seyb old 12.5 MG 00:00: 00:00 mouth oral 00 :00 every Capsule morning metformin 2020-04 Yes Take by Unive rs HCl 04-06 mouth. ity of (METFORMIN 16:48: [place] ORAL) [address] [place] [address] Branch glipiZIDE 5 2020-04 Yes 5mg Take 5 mg U nivers mg tablet 04-06 by mouth. ity o f 16:48: [place] [address] [place] [address] Branch hydroCHLORO 2020-04 Yes Take by Uni vers thiazide 04-06 mouth. ity of 12.5 mg 16:48: [place] tablet [address] [place] [address] LISINOPRIL 2020-04 Yes Take by Univ ers ORAL -02 mouth. ity of 16:48: [address] ANASTROZOLE 2020-04 Yes Take by Uni vers ORAL -02 mouth. ity of 16:48: [address] metformin 2020-04 Yes Take by Unive rs HCl 02 mouth. ity of (METFORMIN 16:48: [place] ORAL) [address] [place] [address] glipiZIDE 5 2020-04 Yes 5mg Take 5 mg U nivers mg tablet 04-06 by mouth. ity o f 16:48: [address] hydroCHLORO 2020-04 Yes Take by Uni vers thiazide 04-06 mouth. ity of 12.5 mg 16:48: [place] tablet [address] [place] [address] LISINOPRIL 2020-04 Yes Take by Univ ers ORAL -02 mouth. ity of 16:48: [address] ANASTROZOLE 2020-04 Yes Take by Uni vers ORAL 02 mouth. ity of 16:48: [address] benzonatate 2020-04 Yes [id number] 100mg Take 1 Univers (TESSALON 1-02 capsule by ity of VAIBHAV) 100 00:00: mouth [place] mg capsule 00 every 8 Medica l (eight) Branch hours as needed for Cough. benzonatate 2020-04 Yes [id number] 100mg Take 1 Univers (TESSALON 1-02 capsule by ittor of VAIBHAV) 100 00:00: mouth [place] mg capsule 00 every 8 Medica l (eight) Branch hours as needed for Cough. LEVEMIR 2020-04 Yes INJECT 35 Unive rs FLEXTOUCH 0-11 UNITS ity of U-100 00:00: EVERY [place] INSULN 100 00 MORNING Medica l unit/mL (3 AND 25 Branch mL) UNITS injection EVERY NIGHT AT BEDTIME SUBCUTANEO US LEVEMIR 2020-04 Yes INJECT 35 Unive rs FLEXTOUCH 0-11 UNITS ity of U-100 00:00: EVERY [place] INSULN 100 00 MORNING Medica l unit/mL (3 AND 25 Branch mL) UNITS injection EVERY NIGHT AT BEDTIME SUBCUTANEO US gabapentin Yes 300mg Take 300 Un kira 300 mg 8-25 mg by ity of capsule 00:00: mouth 2 [place] (two) Medical times Branch daily. alendronate Yes TAKE 1 Univ ers 70 mg 8-25 TABLET BY ity of tablet 00:00: MOUTH ONCE [place] 00 A WEEK 30 Medical MINUTES Branch BEFORE FIRST FOOD OR BEVERAGE OR MEDICATION OF THE DAY WITH WATER gabapentin 2020-0 Yes 300mg Take 300 Un kira 300 mg 8-25 mg by ity of capsule 00:00: mouth 2 [place] 00 (two) Medical times Branch daily. alendronate Yes TAKE 1 Univ ers 70 mg 8-25 TABLET BY ity of tablet 00:00: MOUTH ONCE [place] 00 A WEEK 30 Medical MINUTES Branch BEFORE FIRST FOOD OR BEVERAGE OR MEDICATION OF THE DAY WITH WATER metFORMIN 2019-0 Yes 1000mg Take 1,[address] [facility] [address] (GLUCOPHAGE 5-15 [facility] by [facility] ) 1000 MG 12:09: mouth 2 Medic al tablet 16 (two) Center times daily with breakfast and dinner. lisinopriL 2019-0 Yes 40mg QD Take [address] (PRINIVIL,Z 5-15 by mouth Luke s ESTRIL) 40 12:09: daily. Medic al MG tablet 16 Center pravastatin 2020-0 Yes 40mg QD Take [address] (PRAVACHOL) 5-15 by mouth Luke s 40 MG 12:09: daily. Medical tablet 16 Center glipiZIDE 2020-0 Yes 5mg QD Take [address] (GLUCOTROL) 5-15 by mouth Luke s 5 MG tablet 12:09: daily. [address] hydroCHLORO 2020-0 Yes 12.5mg QD Take 12.[address] thiazide 5-15 mg by [facility]ukes (HYDRODIURI 12:09: mouth Medic al L) 12.5 MG 16 daily. Center tablet insulin 2020-0 Yes Q.5D Inject [facility] detemir 5-15 subcutaneo [facility] U-100 12:09: us 2 Medical (LEVEMIR 16 (two) Center FLEXTOUCH times U-100 daily 25 INSULN) 100 units in unit/mL (3 AM; 35 mL) InPn Units at injection Night . anastrozole 2020-0 Yes 1mg QD Take [address] (ARIMIDEX) 5-15 by mouth [facility]ukes 1 mg tablet 12:09: daily. [address] alendronate 2020-0 Yes 70mg Take [address] [address] (FOSAMAX) 5-15 by mouth [facility] 70 MG 12:09: every 7 Medical tablet 16 days Take Center in the morning with a full glass of water, on an empty stomach, and do not take anything else by mouth or lie down for the next 30 min. . metFORMIN 2020-0 Yes 1000mg Take 1,[address] (GLUCOPHAGE 5-15 mg by [facility] ) 1000 MG 12:09: mouth 2 Medic al tablet 16 (two) Center times daily with breakfast and dinner. lisinopriL 2020-0 Yes 40mg QD Take [address] (PRINIVIL,Z 5-15 by mouth Luke s ESTRIL) 40 12:09: daily. Medic al MG tablet 16 Center pravastatin 2020-0 Yes 40mg QD Take [address] (PRAVACHOL) 5-15 by mouth Luke s 40 MG 12:09: daily. Medical tablet 16 Center glipiZIDE 2020-0 Yes 5mg QD Take [address] (GLUCOTROL) 5-15 by mouth Luke s 5 MG tablet 12:09: daily. [address] hydroCHLORO 2020-0 Yes 12.5mg QD Take 12.[address] thiazide 5-15 mg by [facility]ukes (HYDRODIURI 12:09: mouth Medic al L) 12.5 MG 16 daily. Center tablet insulin 2020-0 Yes Q.5D Inject [facility] detemir 5-15 subcutaneo [facility] U-100 12:09: usly 2 Medical (LEVEMIR 16 (two) Center FLEXTOUCH times U-100 daily 25 INSULN) 100 units in unit/mL (3 AM; 35 mL) InPn Units at injection Night . anastrozole 2020-0 Yes 1mg QD Take [address] (ARIMIDEX) 5-15 by mouth [facility] 1 mg tablet 12:09: daily. [address] alendronate 2020-0 Yes 70mg Take [address] [address] (FOSAMAX) 5-15 by mouth [facility] 70 MG 12:09: every 7 Medical tablet 16 days Take Center in the morning with a full glass of water, on an empty stomach, and do not take anything else by mouth or lie down for the next 30 min. . Vital Signs Vital Name Observation Time Observation Value Comments Source HEIGHT 2019-06-21 00:00:00 165.1 cm WEIGHT 2019-06-21 00:00:00 71.895 kg Systolic blood 2022-11-23 12:54:00 128 mm[Hg] Sindy Seybold - pressure External Diastolic blood 2022-11-23 12:54:00 62 mm[Hg] Kelse y Seybold - pressure External Heart rate 2022-11-23 12:54:00 76 /min Sindy S eybold - External Body temperature 2022-11-23 12:54:00 36.44 Steffany Serena ey Seybold - External Respiratory rate 2022-11-23 12:54:00 20 /min Serena ey Seybold - External Body height 2022-11-23 12:54:00 152.4 cm Sindy S eybold - External Body weight 2022-11-23 12:54:00 66.497 kg Sindy S eybold - External BMI 2022-11-23 12:54:00 28.63 kg/m2 Sindy S eybold - External Oxygen saturation in 2022-11-23 12:54:00 97 /min Sindy Seybold - Arterial blood by External Pulse oximetry Systolic blood 2022-07-21 13:02:00 129 mm[Hg] Sindy Seybold - pressure External Diastolic blood 2022-07-21 13:02:00 61 mm[Hg] Sureshse y Seybold - pressure External Heart rate 2022-07-21 13:02:00 74 /min Sindy S eybold - External Body temperature 2022-07-21 13:02:00 36.56 Steffany Serena ey Seybold - External Respiratory rate 2022-07-21 13:02:00 14 /min Serena ey Seybold - External Body height 2022-07-21 13:02:00 152.4 cm Sindy S eybold - External Body weight 2022-07-21 13:02:00 64.864 kg Sindy S eybold - External BMI 2022-07-21 13:02:00 27.93 kg/m2 Sindy S eybold - External Oxygen saturation in 2022-07-21 13:02:00 97 /min Sindy Seybold - Arterial blood by External Pulse oximetry Systolic blood 2022-04-22 14:33:00 134 mm[Hg] Sindy Seybold - pressure External Diastolic blood 2022-04-22 14:33:00 68 mm[Hg] Sureshse y Seybold - pressure External Heart rate 2022-04-22 14:33:00 68 /min Sindy S eybold - External Body temperature 2022-04-22 14:33:00 36.28 Steffany Serena ey Seybold - External Respiratory rate 2022-04-22 14:33:00 14 /min Serena ey Seybold - External Body height 2022-04-22 14:33:00 152.4 cm Sindy S eybold - External Body weight 2022-04-22 14:33:00 65.772 kg Sindy S eybold - External BMI 2022-04-22 14:33:00 28.32 kg/m2 Sindy S eybold - External Systolic blood 2022-01-14 15:10:00 132 mm[Hg] Sindy Seybold - pressure External Diastolic blood 2022-01-14 15:10:00 73 mm[Hg] Sureshse y Seybold - pressure External Heart rate 2022-01-14 15:10:00 67 /min Sindy S eybold - External Body temperature 2022-01-14 15:10:00 36.89 Steffany Serena ey Seybold - External Respiratory rate 2022-01-14 15:10:00 13 /min Serena ey Seybold - External Body height 2022-01-14 15:10:00 152.4 cm Sindy S eybold - External Body weight 2022-01-14 15:10:00 68.675 kg Sindy S eybold - External BMI 2022-01-14 15:10:00 29.57 kg/m2 Sindy S eybold - External Systolic blood 2021-05-23 19:58:00 126 mm[Hg] Sindy Seybold pressure Diastolic blood 2021-05-23 19:58:00 84 mm[Hg] Kelse y Seybold pressure Heart rate 2021-05-23 19:58:00 71 /min Sindy S eybold Body temperature 2021-05-23 19:58:00 36.28 Steffany Serena ey Seybold Respiratory rate 2021-05-23 19:58:00 14 /min Serena ey Seybold Body height 2021-05-23 19:58:00 152.4 cm Sindy kumarbosoumya Body weight 2021-05-23 19:58:00 69.4 kg Sindy kumarbosoumya BMI 2021-05-23 19:58:00 29.88 kg/m2 Sindy kumarbosoumya Heart rate 2021-03-30 20:34:00 81 /min [facility] Body temperature 2021-03-30 20:34:00 37.11 Steffany [facility] Respiratory rate 2021-03-30 20:34:00 18 /min [facility] Body weight 2021-03-30 20:34:00 68.04 kg [facility] BMI 2021-03-30 20:34:00 29.29 kg/m2 [facility] Oxygen saturation in 2021-03-30 20:34:00 98 /min [facility]ter[facility] blood by [place] Janalakshmi nolberto Pulse oximetry Branch Systolic blood 2021-03-30 20:34:00 146 mm[Hg] [facility] Diastolic blood 2021-03-30 20:34:00 60 mm[Hg] [facility] Systolic blood 2021-02-04 21:45:00 149 mm[Hg] [facility] Diastolic blood 2021-02-04 21:45:00 78 mm[Hg] [facility] Heart rate 2021-02-04 21:45:00 71 /min [facility] Body temperature 2021-02-04 21:45:00 36.94 Steffany [facility] Respiratory rate 2021-02-04 21:45:00 16 /min [facility] Body height 2021-02-04 21:45:00 152.4 cm [facility] Body weight 2021-02-04 21:45:00 68.04 kg [facility] BMI 2021-02-04 21:45:00 29.29 kg/m2 [facility] Oxygen saturation in 2021-02-04 21:45:00 96 /min [facility] Arterial blood by [employer] nolberto Pulse oximetry Branch HEIGHT 2019-06-21 00:00:00 165.1 cm WEIGHT 2019-06-21 00:00:00 71.895 kg HEIGHT 2019-08-14 00:00:00 165.1 cm WEIGHT 2019-08-14 00:00:00 70.308 kg HEIGHT 2019-08-14 00:00:00 165.1 cm WEIGHT 2019-08-14 00:00:00 70.308 kg Procedures Procedure Date / Time Performed Performing Clinician Natalya PERALTA 2022-01-14 15:43:22 Kathryn Allison ld - External XR CHEST 1 VW 2021-03-30 21:55:08 Shahnaz, [facility] MAGNESIUM 2021-03-30 21:44:00 [facility] TROPONIN I 2021-03-30 21:44:00 [facility] COMP. METABOLIC PANEL 2021-03-30 21:44:00 Gustavo Garcia Marie [facility] ([id number]) Medical Branch CBC WITH DIFF 2021-03-30 21:44:00 [facility] URINALYSIS 2021-03-30 21:44:00 [facility] COVID-19 (ID NOW RAPID 2021-03-30 21:44:00 [facility] TEST[facility]) Medical Branch POCT GLUCOSE 2021-03-30 20:39:00 Doctor Unassigned, No [facility] (AUTOMATED) Name Medical Branch NOTICE OF PRIVACY 2021-03-30 20:16:30 Doctor Unassigned, No [facility] PRACTICES Name [facility] CONSENT/REFUSAL FOR 2021-03-30 20:15:52 Doctor Unassigned, No [facility] DIAGNOSIS AND Name Medical Branch TREATMENT Plan of Care Planned Activity Planned Date Details Comments Source Future Scheduled 2022-12-[address] [facility] 00:00:00 (Season Ended) [code = [facility] INFLUENZA VACCINE (Season Ended)] Future Scheduled 2022-04-[address] [facility] 00:00:00 (12+) [code = Medical Center DEPRESSION SCREENING (12+)] Future Scheduled 2022-04-05 FALLS RISK SCREENING [facility] 00:00:00 [code = FALLS RISK Medical C enter SCREENING] Future Scheduled 2020-08-[address] [facility] Test 00:00:00 Counseling and Medical Cente r Screening (12+) [code = Tobacco Cessation Counseling and Screening (12+)] Future Scheduled 2020-04-[address] [facility] 00:00:00 WELLNESS (YEAR 2 or Medical Center FIRST YEAR if no IPPE) [code = MEDICARE ANNUAL WELLNESS (YEAR 2 or FIRST YEAR if no IPPE)] Future Scheduled 2013 PNEUMOCOCCAL 65+ YRS ([address] [facility] 00:00:00 - PCV) [code = Medical Cente r PNEUMOCOCCAL 65+ YRS (1 - PCV)] Future Scheduled 1998 SHINGLES VACCINES ([address] [facility] 00:00:00 2) [code = SHINGLES Medical Center VACCINES (1 of 2)] Future Scheduled 1967 DTAP/TDAP/TD VACCINES [facility] 00:00:00 (1 - Tdap) [code = Medical C enter DTAP/TDAP/TD VACCINES (1 - Tdap)] Future Scheduled 1966 HEPATITIS C SCREENING [facility] 00:00:00 [code = HEPATITIS C Medical Center SCREENING] Future Scheduled 1948 COVID-19 VACCINE (#1) [facility] 00:00:00 [code = COVID-[address] VACCINE (#1)] Future Scheduled 1948 Screening for malignant [facility] Test 00:00:00 neoplasm of breast Medical C enter (procedure) [code = 733822182] Future Scheduled 1948 CT Colonography (combo) [facility] Test 00:00:00 [code = CT Colonography [facility] (combo)] Future Scheduled 1948 Screening for malignant [facility] Test 00:00:00 neoplasm of colon Medical Ce nter (procedure) [code = 818899531] Future Scheduled 1948 Screening for malignant [facility] Test 00:00:00 neoplasm of colon Medical Ce nter (procedure) [code = 038742590] Future Scheduled 1948 DXA SCAN [code = DXA [facility] Test 00:00:00 SCAN] [facility] Future Scheduled 1948 Screening for malignant [facility] Test 00:00:00 neoplasm of colon Medical Ce nter (procedure) [code = 279647155] Future Scheduled 1948 Screening for malignant [facility] Test 00:00:00 neoplasm of colon Medical Ce nter (procedure) [code = 282134361] Future Scheduled 1948 Sigmoidoscopy [code = [facility] Encounter Admission Attending Care Care Encounter Source Date/Time Date/Time Type Type Clinicians Facility Department ID 2021-01-07 Outpatient ROMULO HONG, [facility] Surgery [id number] SLE 13:33:54 MK 2023-03-04 2023-03-04 Outpatient SINDY ALLISON [id number] Sindy 08:15:00 08:15:00 KATHRYN Seybol d 2023-02-23 2023-02-23 Outpatient SINDY ALLISON [id number] Sindy 08:30:00 08:30:00 KATHRYN Seybol d 2023-02-03 2023-02-03 Outpatient GC_[id number] PRIV PRIV [id number] [facility] 00:00:00 00:00:00 diyala_S [id number] Medic al 2023-01-09 2023-01-09 Outpatient SINDY ALLISON [id number] Sindy 00:00:00 00:00:00 KATHRYN Seybol d 2022-12-24 2022-12-24 Outpatient SINDY JAIN [id number] Sindy 00:00:00 00:00:00 Seybol d 2022-12-07 2022-12-07 Outpatient SINDY ALLISON [id number] Sindy 00:00:00 00:00:00 KATHRYN Seybol d 2022-12-02 2022-12-02 Outpatient SINDY BELLA [id number] Sindy 00:00:00 00:00:00 ATASU Seybol d 2022-11-24 2022-11-24 Outpatient SINDY ALLISON [id number] Sindy 00:00:00 00:00:00 KATHRYN Seybol d 2022-11-24 2022-11-24 Outpatient PREZAS, SINDY JAIN [id number] Sindy 00:00:00 00:00:00 KATHRYN Seybol d 2022-11-23 2022-11-23 Outpatient LAB90 SINDY JAIN [id number] Sindy 08:30:00 08:30:00 Seybol d 2022-11-23 2022-11-23 Outpatient PREZASSINDY [id number] Sindy 08:00:00 08:00:00 KATHRYN Seybol d 2022-11-15 2022-11-15 Outpatient PREZAS, SINDY JIAN [id number] Sindy 00:00:00 00:00:00 KATHRYN Seybol d 2022-11-07 2022-11-07 Outpatient PREZASSINDY [id number] Sindy 00:00:00 00:00:00 KATHRYN Seybol d 2022-11-06 2022-11-06 Outpatient PREZASSINDY [id number] Sindy 00:00:00 00:00:00 KATHRYN Seybol d 2022-10-29 2022-10-29 Outpatient SHAYNESINDY Chen [id number] Sindy 09:30:00 09:30:00 ATASU Seybol d 2022-10-13 2022-10-13 Outpatient PREZASINDY Haney [id number] Sindy 00:00:00 00:00:00 KATHRYN Seybol d 2022-10-06 2022-10-06 Outpatient PREZASSINDY [id number] Sindy 00:00:00 00:00:00 KATHRYN Seybol d 2022-10-01 2022-10-01 Outpatient PREZASSINDY [id number] Sindy 00:00:00 00:00:00 KATHRYN Seybol d 2022-09-22 2022-09-22 Outpatient PREZASINDY Haney [id number] Sindy 00:00:00 00:00:00 KATHRYN Seybol d 2022-09-142022-09-14 Outpatient PREZAS, SINDY JAIN [id number] Sindy 00:00:00 00:00:00 KATHRYN Seybol d 2022-08-20 2022-08-20 Outpatient PREZAS, SINDY JAIN [id number] Sindy 00:00:00 00:00:00 KATHRYN Seybol d 2022-07-21 2022-07-21 Outpatient LAB90 SINDY JAIN [id number] Sindy 09:15:00 09:15:00 Seybol d 2022-07-21 2022-07-21 Outpatient PREZAS, SINDY JAIN [id number] Sindy 08:15:00 08:15:00 KATHRYN Seybol d 2022-06-24 2022-06-24 Outpatient PREZAS, SINDY JAIN [id number] Sindy 00:00:00 00:00:00 KATHRYN Seybol d 2022-06-01 2022-06-01 Outpatient PREZAS, SINDY JAIN [id number] Sindy 00:00:00 00:00:00 KATHRYN Seybol d 2022-05-29 2022-05-29 Outpatient PREZAS, SINDY JAIN [id number] Sindy 00:00:00 00:00:00 KATHRYN Seybol d 2022-05-29 2022-05-29 Outpatient PREZAS, SINDY JAIN [id number] Sindy 00:00:00 00:00:00 KATHRYN Seybol d 2022-05-15 2022-05-15 Outpatient PREZAS, SINDY JAIN [id number] Sindy 00:00:00 00:00:00 KATHRYN Seybol d 2022-05-14 2022-05-14 Outpatient PREZAS, SINDY JAIN [id number] Sindy 00:00:00 00:00:00 KATHRYN Seybol d 2022-04-24 2022-04-24 Outpatient PREZAS, SINDY JAIN [id number] Sindy 00:00:00 00:00:00 KATHRYN Seybol d 2022-04-23 2022-04-23 Outpatient LAB90 SINDY JAIN [id number] Sindy 08:00:00 08:00:00 Seybol d 2022-04-22 2022-04-22 Outpatient SINDY ALLISON SINDY [id number] Sindy 08:45:00 08:45:00 KATHRYN Seybol d 2022-04-10 2022-04-10 Outpatient SINDY BELLASEY [id number] Sindy 09:00:00 09:00:00 ATASU Seybol d 2022-03-25 2022-03-25 Outpatient SINDY JAIN [id number] Sindy 00:00:00 00:00:00 Seybol d 2022-03-24 2022-03-24 Outpatient SINDY JAIN [id number] Sindy 14:15:00 14:15:00 Seybol d 2022-03-24 2022-03-24 Outpatient SINDY JAIN [id number] Sindy 13:15:00 13:15:00 Seybol d 2022-03-24 2022-03-24 Outpatient SINDY JAIN [id number] Sindy 13:00:00 13:00:00 Seybol d 2022-03-24 2022-03-24 Outpatient SINDY JAIN [id number] Sindy 12:00:00 12:00:00 Seybol d 2022-03-16 2022-03-16 Outpatient SINDY ALLISON SINDY [id number] Sindy 00:00:00 00:00:00 KATHRYN Seybol d 2022-03-05 2022-03-05 Outpatient SINDY JAIN [id number] Sindy 14:45:00 14:45:00 Seybol d 2022-03-05 2022-03-05 Outpatient SINDY JAIN [id number] Sindy 13:45:00 13:45:00 Seybol d 2022-03-05 2022-03-05 Outpatient SINDY JAIN [id number] Sindy 13:15:00 13:15:00 Seybol d 2022-03-05 2022-03-05 Outpatient SINDY JAIN [id number] Sindy 12:15:00 12:15:00 Seybol d 2022-02-12 2022-02-12 Outpatient SINDY JAIN [id number] Sindy 08:30:00 08:30:00 Seybol d 2022-02-06 2022-02-06 Outpatient SHAYNE, SINDY JAIN [id number] Sindy 11:00:00 11:00:00 ATASU Seybol d 2022-02-06 2022-02-06 Outpatient 39LISANDRO SINDY JAIN [id number] Sindy 11:00:00 11:00:00 Seybol d 2022-02-02 2022-02-02 Outpatient SHANYE, SINDY JAIN [id number] Sindy 00:00:00 00:00:00 ATASU Seybol d 2022-01-14 2022-01-14 Outpatient PREZAS, SINDY JAIN [id number] Sindy 10:00:00 10:00:00 KATHRYN Seybol d 2022-01-01 2022-01-01 Outpatient PREZAS SINDY JAIN [id number] Sindy 08:30:00 08:30:00 KATHRYN Seybol d 2022-01-01 2022-01-01 Outpatient LAB90 SINDY JAIN [id number] Sindy 08:20:00 08:20:00 Seybol d 2021-12-17 2021-12-17 Outpatient PREZAS, SINDY JAIN [id number] Sindy 10:00:00 10:00:00 KATHRYN Seybol d 2021-12-02 2021-12-02 Office PreStephen hand [id number] Sindy 10:00:00 10:15:00 Visit Kathryn Roland [id number] Se old [id number] [id number] 2021-11-12 2021-11-12 Outpatient PREZAS, SINDY JAIN [id number] Sindy 00:00:00 00:00:00 KATHRYN Seybol d 2021-10-31 2021-10-31 Outpatient PREZASINDY Haney [id number] Sindy 00:00:00 00:00:00 KATHRYN Seybol d 2021-10-01 2021-10-01 Outpatient LAB90 SINDY JAIN [id number] Sindy 09:15:00 09:15:00 Seybol d 2021-10-012021-10-01 Office PrezakoltonStephen [id number] Sindy 08:30:00 09:00:00 Visit Kathryn Roland [id number] Se ven[place] 1.2.7.2.686 [id number] 2021-09-26 2021-09-26 Outpatient PRESINDY HAND [id number] Sindy 08:15:00 08:15:00 KATHRYN Seybol d 2021-09-25 2021-09-25 Outpatient PREZAS, SINDY JAIN [id number] Sindy 00:00:00 00:00:00 KATHRYN Seybol d 2021-09-05 2021-09-05 Outpatient PREZASINDY Haney [id number] Sindy 00:00:00 00:00:00 KATHRYN Seybol d 2021-08-26 2021-08-26 Outpatient PREZASINDY Haney [id number] Sindy 00:00:00 00:00:00 KATHRYN Seybol d 2021-08-21 2021-08-21 Outpatient PREZASSINDY [id number] Sindy 00:00:00 00:00:00 KATHRYN Seybol d 2021-07-14 2021-07-14 Outpatient PREZASINDY Haney [id number] Sindy 00:00:00 00:00:00 KATHRYN Seybol d 2021-07-10 2021-07-10 Outpatient PREZASINDY Haney [id number] Sindy 00:00:00 00:00:00 KATHRYN Seybol d 2021-06-06 2021-06-06 Outpatient LAB90 SINDY JAIN [id number] Sindy 07:55:00 07:55:00 Seybol d 2021-06-06 2021-06-06 Outpatient PREZASINDY Haney [id number] Sindy 00:00:00 00:00:00 KATHRYN Seybol d 2021-06-02 2021-06-02 Outpatient LAB90 SINDY JAIN [id number] Sindy 07:50:00 07:50:00 Seybol d 2021-05-30 2021-05-30 Outpatient LAB90 SINDY SINDY [id number] Sindy 08:15:00 08:15:00 Seybol d 2021-05-28 2021-05-28 Outpatient SINDY ALLISON SINDY [id number] Sindy 00:00:00 00:00:00 KATHRYN Seybol d 2021-05-26 2021-05-26 Outpatient SINDY ALLISON SINDY [id number] Sindy 00:00:00 00:00:00 KATHRYN Seybol d 2021-05-23 2021-05-23 Office Stephen Allison [id number] Sindy 14:00:00 14:45:00 Visit Kathryn Luan 350.1.13.13 Se venus 1.2.7.2.686 [id number] 2021-03-30 2021-03-30 Emergency X Gustavo GARCIA [facility] ERT [id number] Univers 14:46:00 16:51:[address] [facility] 2021-03-30 2021-03-30 Emergency Gustavo Garcia [facility] [id number] Univers 14:46:00 16:51:00 Marie LOPEZ 350.1.13.10 i ty [facility].7.2.686 [id number] [address] 2021-02-04 2021-02-04 Urgent Cinthia Cooley [facility] 1.2.840. 114 [id number] Univers 16:43:24 17:03:24 Damian Merino 350.1.13.10 ity [facility] 4.2.7.2.686 Curly as YUSUF?BLEA [id number] MEDICAL OFFICE BUILDING 2021-02-04 2021-02-04 Outpatient R [facility] [id number] Univers 17:00:00 [facility]:00:[facility] 2021-02-04 2021-02-04 Outpatient Andrew BENITO [facility] [id number] Univers 16:40:00 16:40:00 DAMIAN [facility] 2019-08-14 2019-08-14 Outpatient ROMULO HONG [facility] [id number] [facility] 00:00:00 00:00:00 MK 2019-08-14 2019-08-14 Outpatient [facility] SLE [id number] [facility] 00:00:00 00:00:00 [id number] 2019-08-14 2019-08-14 Outpatient [facility] [id number] [facility] 00:00:00 00:00:00 2019-08-11 2019-08-11 Outpatient ROMULO HONG, [facility] [id number] [facility] 00:00:00 00:00:00 MK 2019-08-11 2019-08-11 Outpatient [facility] [id number] [facility] 00:00:00 00:00:00 [id number] 2019-08-04 2019-08-04 Outpatient [facility] [id number] [facility] 00:00:00 00:00:00 [id number] Results Test Description Test Time Test Comments Results Result Comments Source [facility] 2022-01-14 15:43:32 Test Item Value Reference Range Interpretation Comme nts [facility] left side (test code See_Comment L [Automated message] The system = 41803-7C) which generated this result transmitted ref erence range: 1.40 - 0.90 NA. The reference range was not u sed to interpret this result as normal/abnormal. [employer] right side (test See_Comment P resentation Factors: code = 04642-9F) Hypertensio n, DiabetesExercise Modality: At Re stNormal - 1.40 - 1.00Borderline - 0.99 - 0.90Mild - 0.89 - 0.60Mo derate - 0.59 - 0.30Severe - 0. 29 - 0.00 [Automated mess age] The system which generated this result transmitted ref erence range: 1.40 - 0.90 NA. The reference range was not u sed to interpret this result as normal/abnormal. Lab Interpretation (test code Abnormal = 39804-7) Sindy Jhaveri ExternalTROPONICarlton [id number] 22:19:06 Test Item Value Reference Interpretation Comments Range TROPONIN I (test 0.006 ng/mL See_Comment [Automated code = 4336141302) message] The system which generated this result transmitted reference range : <=0.034. The reference range was not used to interpret this result as normal/abnormal . VICKI (test code = Reference (Normal) VICKI) Range (defined by the 99th percentile reference limit): <= 0.034 ng/mL Note: Cardiac troponin begins to rise 3-4 hours after the onset of ischemia. Repeat in 4-6 hours if the sample was drawn within 3-4 hours of the onset of the symptom and found normal. Diagnosis of myocardial injury is made with acute changes in cTn concentrations with at least one serial sample above the 99th percentile upper reference limit (URL), taken together with the patient's clinical presentation. Biotin has been reported to cause a negative bias, interpret results relative to patient's use of biotin. Lab Interpretation Normal (test code = 26390-3) [facility] Test Item Value Reference Range Interpretation Comments MAGNESIUM (test code = 0215580175) 1.8 mg/dL 1.7-2.4 Lab Interpretation (test code = Normal 34120-5) [facility] (25503)2021-03-30 22:07:43 Test Item Value Reference Range Interpretation Comments NA (test code = 136 mmol/L 135-145 7011305180) K (test code = 4.1 mmol/L 3.5-5.0 1926358134) CL (test code = 97 mmol/L 98-108 L 3367774996) CO2 TOTAL (test code = 28 mmol/L 23-31 7639497656) AGAP (test code = 2-16 1901668550) BUN (test code = 24 mg/dL 7-23 H 3755227444) GLUCOSE (test code = 96 mg/dL 70-110 4952812017) CREATININE (test code = 1.11 mg/dL 0.50-1.04 H 7888681021) TOTAL BILI (test code = 0.3 mg/dL 0.1-1.0 5771746367) CALCIUM (test code = 9.1 mg/dL 8.6-10.6 6573043597) T PROTEIN (test code = 7.6 g/dL 6.3-8.2 8208206094) ALBUMIN (test code = 4.7 g/dL 3.5-5.0 3477790466) ALK PHOS (test code = 95 U/L 34-122 6704040131) ALTv (test code = 14 U/L 5-35 2-6) AST(SGOT) (test code = 22 U/L 13-40 5975509872) eGFR (test code = mL/min/1.73m2 0583981673) VICKI (test code = VICKI) Association of Glomerular Filtration Rate (GFR) and Staging of Kidney Disease* + --+ --+ ------+| GFR (mL/min/1.73 m2) ?| With Kidney Damage ?| ?Without Kidney Damage+ --------+ --------+ +| ?>90 ?| ?Stage one ?| ? Normal ?+ ---+ ---+ -------+| ?60-89 ?| ?Stage two ?| ? Decreased GFR ? + --+ --+ ------+| ?30-59 ?| ?Stage three ?| ? Stage three ? + --+ --+ ------+| ?15-29 ?| ?Stage four ? | ? Stage four ?+ ---+ ---+ -------+| ?<15 (or dialysis) ? ?| ?Stage five ? | ? Stage five ?+ ---+ ---+ -------+ *Each stage assumes the associated GFR level has been in effect for at least three months. ?Stages 1 to 5, with or without kidney disease, indicate chronic kidney disease. Notes: Determination of stages one and two (with eGFR >59mL/min/1.73 m2) requires estimation of kidney damage for at least three months as defined by structural or functional abnormalities of the kidney, manifested by either:Pathological abnormalities or Markers of kidney damage (including abnormalities in the composition of the blood or urine or abnormalities in imaging tests). Lab Interpretation Abnormal (test code = 74552-0) [facility] WITH [id number] 22:06:27 Test Item Value Reference Range Interpretation Comments WBC (test code = See_Comment [Automated 0390-2) message] The sy stem which generated this result transmitted reference range : 4.30 - 11.10 10*3/?L. The reference range was not used to interpret this result as normal/abnormal . RBC (test code = See_Comment [Automated 789-8) message] The sy stem which generated this result transmitted reference range : 3.93 - 5.25 10*6/?L. The reference range was not used to interpret this result as normal/abnormal . HGB (test code = 13.9 g/dL 11.6-15.0 718-7) HCT (test code = 42.4 % 35.7-45.2 4544-3) MCV (test code = 88.7 fL 80.6-95.5 787-2) MCH (test code = 29.1 pg 25.9-32.8 785-6) MCHC (test code = 32.8 g/dL 31.6-35.1 786-4) RDW-SD (test code = 47.8 fL 39.0-49.9 06375-3) RDW-CV (test code = 14.6 % 12.0-15.5 788-0) PLT (test code = See_Comment [Automated 777-3) message] The sy stem which generated this result transmitted reference range : 166 - 358 10*3/ ?L. The reference r nahid was not used to interpret this result as normal/abnormal . MPV (test code = 9.6 fL 9.5-12.9 20794-9) NRBC/100 WBC (test See_Comment [Automat ed code = [id number]) message] The system which generated this result transmitted reference range : 0.0 - 10.0 /100 WBCs. The refer ence range was not u sed to interpret th is result as normal/abnormal . NRBC x10^3 (test code <0.01 See_Comment [Auto mated = [id number]) message] The s ystem which generated this result transmitted reference range : 10*3/?L. The reference range was not used to interpret this result as normal/abnormal . GRAN MAT (NEUT) % 75.9 % (test code = 770-8) IMM GRAN % (test code 0.30 % = [id number]) LYMPH % (test code = 14.6 % 736-9) MONO % (test code = 6.8 % 5905-5) EOS % (test code = 1.9 % 713-8) BASO % (test code = 0.5 % 706-2) GRAN MAT x10^3(ANC) 7.19 10*3/uL 1.88-7.09 H (test code = [id number]) IMM GRAN x10^3 (test 0.03 10*3/uL 0.00-0.06 code = 7716775806) LYMPH x10^3 (test code 1.39 10*3/uL 1.32-3.29 = 731-0) MONO x10^3 (test code 0.65 10*3/uL 0.33-0.92 = 742-7) EOS x10^3 (test code = 0.18 10*3/uL 0.03-0.39 711-2) BASO x10^3 (test code 0.05 10*3/uL 0.01-0.07 = 704-7) Lab Interpretation Abnormal (test code = 20394-2) [facility] GLUCOSE (AUTOMATED)2021-03-30 20:41:47 Test Item Value Reference Range Interpretation Comments POCT GLU (test code = 6382647901) 97 mg/dL 70-110 Lab Interpretation (test code = Normal 15938-7) [facility]-[id number] 09:17:00 Test Item Value Reference Range Interpretation Comments ACTIVATED CLOTTING TIME 285 sec : 74 -137 seconds, (BEAKER) (test code = Hali ne: TESTED AT 441) [facility] [address] [place], [address]: Sound Engineer Audio Control/Techni angle ID = [id number] for LEANNA PEREZ SARS-COV2/RT-PCR ([facility])2019-08-15 17:03:00 Test Item Value Reference Range Interpretation Comments SARS-COV2/RT-PCR (test code = Negative Not Detected, Negative 1295494) SARS-COV-2 PERFORMING LAB CPL (test code = 6733301) BASIC METABOLIC [id number] 12:04:00 Test Item Value Reference Range Interpretation Comments SODIUM (BEAKER) 136 meq/L 136-145 (test code = 381) POTASSIUM (BEAKER) 4.4 meq/L 3.5-5.1 Specimen slightly (test code = 379) hemolyzed CHLORIDE (BEAKER) 100 meq/L 98-107 (test code = 382) CO2 (BEAKER) (test 26 meq/L 22-29 code = 355) BLOOD UREA NITROGEN 10 mg/dL 7-21 (BEAKER) (test code = 354) CREATININE (BEAKER) 0.84 mg/dL 0.57-1.25 Specimen slightly (test code = 358) hemolyzed GLUCOSE RANDOM 96 mg/dL 70-105 (BEAKER) (test code = 652) CALCIUM (BEAKER) 9.0 mg/dL 8.4-10.2 (test code = 697) EGFR (BEAKER) (test 67 mL/min/1.73 ESTIMA DIANE GFR IS code = 1092) sq m NOT ACCURATE CREATININE CLEARANCE IN PREDICTING GLOMERULAR FILTRATION RATE . ESTIMATED GFR I S NOT APPLICABLE FOR DIALYSIS PATIEN TS. Sound Engineer Audio Control ID - ADMINCBC W/PLT COUNT & AUTO [id number] 11:46:00 Test Item Value Reference Range Interpretation Comments WHITE BLOOD CELL COUNT (BEAKER) 7.2 K/ L 3.5-10.5 (test code = 775) RED BLOOD CELL COUNT (BEAKER) 4.46 M/ L 3.93-5.22 (test code = 761) HEMOGLOBIN (BEAKER) (test code = 12.3 GM/DL 11.2-15.7 410) HEMATOCRIT (BEAKER) (test code = 38.8 % 34.1-44.9 411) MEAN CORPUSCULAR VOLUME (BEAKER) 87.0 fL 79.4-94.8 (test code = 753) MEAN CORPUSCULAR HEMOGLOBIN 27.6 pg 25.6-32.2 (BEAKER) (test code = 751) MEAN CORPUSCULAR HEMOGLOBIN CONC 31.7 GM/DL 32.2-35.5 L (BEAKER) (test code = 752) RED CELL DISTRIBUTION WIDTH 14.4 % 11.7-14.4 (BEAKER) (test code = 412) PLATELET COUNT (BEAKER) (test 254 K/CU MM 150-450 code = 756) MEAN PLATELET VOLUME (BEAKER) 9.1 fL 9.4-12.3 L (test code = 754) NUCLEATED RED BLOOD CELLS 0 /100 WBC 0-0 (BEAKER) (test code = 413) NEUTROPHILS RELATIVE PERCENT 64 % (BEAKER) (test code = 429) LYMPHOCYTES RELATIVE PERCENT 25 % (BEAKER) (test code = 430) MONOCYTES RELATIVE PERCENT 8 % (BEAKER) (test code = 431) EOSINOPHILS RELATIVE PERCENT 3 % (BEAKER) (test code = 432) BASOPHILS RELATIVE PERCENT 0 % (BEAKER) (test code = 437) NEUTROPHILS ABSOLUTE COUNT 4.59 K/ L 1.56-6.13 (BEAKER) (test code = 670) LYMPHOCYTES ABSOLUTE COUNT 1.81 K/ L 1.18-3.74 (BEAKER) (test code = 414) MONOCYTES ABSOLUTE COUNT (BEAKER) 0.54 K/ L 0.24-0.36 H (test code = 415) EOSINOPHILS ABSOLUTE COUNT 0.22 K/ L 0.04-0.36 (BEAKER) (test code = 416) BASOPHILS ABSOLUTE COUNT (BEAKER) 0.03 K/ L 0.01-0.08 (test code = 417) IMMATURE GRANULOCYTES-RELATIVE 0 % 0-1 PERCENT (BEAKER) (test code = 2801) Notes Date/Time Note Provider Source 2022-11-23 07:57:03 [id number]:57:03Formatting of [facility] this note might be different from the original.[place] [id number] [id number]:03:40Nurse [id number] for patient [id number] NoteLNBellin Health's [facility] [facility] [id number]|[id number] [id number]"
[2023-02-28] MEDS ORDERED: HYDROCODONE/APAP 5/325 MG TAB ONE (13:15)
--- NOTE | 2023-02-28 13:45 | EDPHYS ---
Physician Documentation [facility] Name: Cyndee Nuñez Age: 72 yrs Sex: Female : 1950 Arrival Date: 02/28/2023 Time: 12:18 Bed 12 Private MD: Jeremias Allison ED Physician Ronn Bonilla HPI: 02/28 13:01 This 72 yrs old Female presents to ER via Ambulatory with complaints of Wrist snw Injury, Fall Injury. 13:01 Context: The problem was sustained outdoors. Pt was in the garden, tripped and fell, snw broke her fall with her right hand, no head contact, no LOC. Historical: - Allergies: 12:32 No Known Allergies; db - PMHx: 12:32 Diabetes - IDDM; ADD/ADHD; breast cancer; Hypertension; db - PSHx: 12:33 RIGHT MASECTOMY; db - Immunization history:: Adult Immunizations unknown. - Social history:: Smoking status: Patient denies any tobacco usage or history of. ROS: 13:00 Constitutional: Negative for fever, chills, and weight loss, Eyes: Negative for injury, snw pain, redness, and discharge, ENT: Negative for injury, pain, and discharge, Neck: Negative for injury, pain, and swelling, Cardiovascular: Negative for chest pain, palpitations, and edema, Respiratory: Negative for shortness of breath, cough, wheezing, and pleuritic chest pain, Abdomen/GI: Negative for abdominal pain, nausea, vomiting, diarrhea, and constipation, Back: Negative for injury and pain, : Negative for injury, bleeding, discharge, and swelling, Skin: Negative for injury, rash, and discoloration, Neuro: Negative for headache, weakness, numbness, tingling, and seizure, Psych: Negative for depression, anxiety, suicide ideation, homicidal ideation, and hallucinations, 13:00 MS/extremity: Positive for injury or acute deformity, decreased range of motion, pain, of the right wrist, Exam: 12:59 Constitutional: This is a well developed, well nourished patient who is awake, alert, snw and in no acute distress. Head/Face: Normocephalic, atraumatic. Eyes: Pupils equal round and reactive to light, extra-ocular motions intact. Lids and lashes normal. Conjunctiva and sclera are non-icteric and not injected. Cornea within normal limits. Periorbital areas with no swelling, redness, or edema. ENT: Nares patent. No nasal discharge, no septal abnormalities noted. Tympanic membranes are normal and external auditory canals are clear. Oropharynx with no redness, swelling, or masses, exudates, or evidence of obstruction, uvula midline. Mucous membranes moist. Neck: Trachea midline, no thyromegaly or masses palpated, and no cervical lymphadenopathy. Supple, full range of motion without nuchal rigidity, or vertebral point tenderness. No Meningismus. Chest/axilla: Normal chest wall appearance and motion. Nontender with no deformity. No lesions are appreciated. Cardiovascular: Regular rate and rhythm with a normal S1 and S2. No gallops, murmurs, or rubs. Normal PMI, no JVD. No pulse deficits. Respiratory: Lungs have equal breath sounds bilaterally, clear to auscultation and percussion. No rales, rhonchi or wheezes noted. No increased work of breathing, no retractions or nasal flaring. Abdomen/GI: Soft, non-tender, with normal bowel sounds. No distension or tympany. No guarding or rebound. No evidence of tenderness throughout. Back: No spinal tenderness. No costovertebral tenderness. Full range of motion. Skin: Warm, dry with normal turgor. Normal color with no rashes, no lesions, and no evidence of cellulitis. Neuro: Awake and alert, GCS 15, oriented to person, place, time, and situation. Cranial nerves II-XII grossly intact. Motor strength 5/5 in all extremities. Sensory grossly intact. Cerebellar exam normal. Normal gait. Psych: Awake, alert, with orientation to person, place and time. Behavior, mood, and affect are within normal limits. 12:59 Musculoskeletal/extremity: Extremities: grossly normal except: noted in the right wrist: decreased ROM, deformity, swelling, tenderness, +pulses, Vital Signs: 12:29 BP 115 / 61; Pulse 62; Resp 16; Temp 98.2(O); Pulse Ox 97% ; Weight 66.68 kg; Height 5 db ft. 0 in. ; Pain 10/10; 14:06 BP 116 / 62; Pulse 64; Resp 18; Pulse Ox 98% on R/A; db 12:29 Body Mass Index 28.71 (66.68 kg, 152.4 cm) db 12:29 Pain Scale: Adult db Procedures: 14:10 Splinting: Splint applied to right wrist using Orthoglass splint, sling, applied by w tech. Examined by me, post splint application: neurovascular intact, 2+ distal pulses palpable, brisk capillary refill noted, Patient tolerated well. MDM: 12:40 Patient medically screened. snw 13:00 Differential diagnosis: dislocation, closed fracture, contusion. Data reviewed: vital snw signs, nurses notes, radiologic studies. I considered the following discharge prescriptions or medication management in the emergency department Medications were administered in the Emergency Department. See MAR. Counseling: I had a detailed discussion with the patient and/or guardian regarding the historical points, exam findings, and any diagnostic results supporting the discharge/admit diagnosis, radiology results, to return to the emergency department if symptoms worsen or persist or if there are any questions or concerns that arise at home. 13:57 Independent interpretation of the following test(s) in the Emergency Department X-Ray: snw My interpretation is right forearm, radius impaction fracture through articular surface with dorsal displacement without dislocation. Historians other than the Patient: Daughter/Son: Daughter. Response to treatment: the patient's symptoms have mildly improved after treatment. Special discussion: Based on the history and exam findings, there is no indication for further emergent testing or inpatient evaluation. I discussed with the patient/guardian the need to see the orthopedic surgeon for further evaluation of the symptoms. I discussed with the patient/guardian the need to see the primary care provider for further evaluation of the symptoms. 02/28 12:40 Order name: Forearm Right XRAY snw 02/28 12:44 Order name: Sling; Complete Time: 14:06 snw 02/28 12:44 Order name: Ice pack; Complete Time: 14:06 snw 02/28 12:45 Order name: Sugar Tong Forearm Splint; Complete Time: 14:06 snw Administered Medications: 13:05 Drug: HYDROcodone-acetaminophen PO 5 mg-325 mg 1 tabs PO once Route: PO; ll1 14:09 Follow up: Response: No adverse reaction db Disposition Summary: 02/28/23 13:44 Discharge Ordered Notes: Location: Home snw Condition: Stable snw Diagnosis - Fracture of lower end of radius snw - Fall on same level from slipping, tripping and stumbling without subsequent snw striking against object Followup: snw - With: Emergency Department - When: As needed - Reason: Worsening of condition Followup: snw - With: Jeremias Allison DO - When: Tomorrow - Reason: Recheck today's complaints, Continuance of care, Re-evaluation by your physician Discharge Instructions: - Discharge Summary Sheet snw - Cast or Splint Care, Adult snw - RICE Therapy for Routine Care of Injuries snw - How to Use a Sling snw - Forearm Fracture Rehab snw Forms: - Medication Reconciliation Form snw - Thank You Letter snw - Antibiotic Education snw - Prescription Opioid Use snw - Patient Portal Instructions snw - Leadership Thank You Letter snw Prescriptions: - Tramadol 50 mg Oral Tablet - take 1 tablet ORAL route every 8 hours as needed; 12 tablet; Refills: 0, snw Product Selection Permitted Signatures: Dispatcher [employer] EDMS Tata Corrigan FNP-C HYDROPONICS WORKER-Csnw Rula Mercado RN RN ll1 Ambreen Ross RN RN db Corrections: (The following items were deleted from the chart) 12:34 12:32 Allergies: Aspirin; db db
--- NOTE | 2023-02-28 13:45 | ER ---
Nurse's Notes [facility] Name: Cyndee Nuñez Age: 72 yrs Sex: Female : 1950 Arrival Date: 02/28/2023 Time: 12:18 Bed 12 Private MD: Jeremias Allison Diagnosis: Fracture of lower end of radius;Fall on same level from slipping, tripping and stumbling without subsequent striking against object Presentation: 02/28 12:29 Chief complaint: TRIP AND FALL OUTSIDE WATERING PLANTS. HURT RIGHT WRIST. Coronavirus db screen: Vaccine status: Patient reports receiving the 2nd dose of the covid vaccine. Client denies travel out of the [place] in the last 14 days. At this time, the client does not indicate any symptoms associated with coronavirus-19. Ebola Screen: Patient negative for fever greater than or equal to 101.5 degrees Fahrenheit, and additional compatible Ebola Virus Disease symptoms Patient denies exposure to infectious person. Patient denies travel to an Ebola-affected area in the 21 days before illness onset. No symptoms or risks identified at this time. Initial Sepsis Screen: Does the patient meet any 2 criteria? No. Patient's initial sepsis screen is negative. Does the patient have a suspected source of infection? No. Patient's initial sepsis screen is negative. Risk Assessment: Do you want to hurt yourself or someone else? Patient reports no desire to harm self or others. Onset of symptoms was February 28, 2023. 12:29 Method Of Arrival: Ambulatory db 12:29 Acuity: ZEE 3 db Triage Assessment: 12:33 General: Appears in no apparent distress. comfortable, Behavior is calm, cooperative. db Pain: Complains of pain in right hand, RIGHT WRIST. Neuro: Level of Consciousness is awake, alert, obeys commands, Oriented to person, place, time, situation. Musculoskeletal: Circulation, motion, and sensation intact. Capillary refill < 3 seconds, Range of motion: intact in right wrist. Injury Description: Bruise sustained to right arm. Historical: - Allergies: 12:32 No Known Allergies; db - PMHx: 12:32 Diabetes - IDDM; ADD/ADHD; breast cancer; Hypertension; db - PSHx: 12:33 RIGHT MASECTOMY; db - Immunization history:: Adult Immunizations unknown. - Social history:: Smoking status: Patient denies any tobacco usage or history of. Screenin:06 [facility] ED Fall Risk Assessment (Adult) History of falling in the last 3 months, db including since admission No falls in past 3 months (0 pts) Score/Fall Risk Level 0 - 2 = Low Risk Oriented to surroundings, Maintained a safe environment. Abuse screen: Denies threats or abuse. Denies injuries from another. Nutritional screening: No deficits noted. Tuberculosis screening: No symptoms or risk factors identified. Assessment: 14:06 Reassessment: Patient appears in no apparent distress at this time. Patient and/or db family updated on plan of care and expected duration. Pain level reassessed. Patient is alert, oriented x 3, equal unlabored respirations, skin warm/dry/pink. SLING AND ORTHO SPLINT ON AND NEUROVASCULAR INTACT. CAP REFILL <3 Patient states symptoms have improved. Critical care time stopped, patient has stabilized. General: Appears in no apparent distress. comfortable, Behavior is calm, cooperative. Pain: Complains of pain in right wrist. Neuro: Level of Consciousness is awake, alert, obeys commands, Oriented to person, place, time, situation. Respiratory: Airway is patent Respiratory effort is even, unlabored, Respiratory pattern is regular, symmetrical. Vital Signs: 12:29 BP 115 / 61; Pulse 62; Resp 16; Temp 98.2(O); Pulse Ox 97% ; Weight 66.68 kg; Height 5 db ft. 0 in. ; Pain 10/10; 14:06 BP 116 / 62; Pulse 64; Resp 18; Pulse Ox 98% on R/A; db 12:29 Body Mass Index 28.71 (66.68 kg, 152.4 cm) db 12:29 Pain Scale: Adult db ED Course: 12:19 Patient arrived in ED. as 12:20 Jeremias Allison DO is Private Physician. as 12:20 Tata Corrigan FNP-C is PHCP. snw 12:20 Ronn Bonilla MD is Attending Physician. snw 12:32 Triage completed. db 12:33 Arm band placed on Patient placed in an exam room. db 12:35 Ambreen Ross, YAMIL is Primary Nurse. db 13:38 Forearm Right XRAY In Process Unspecified. EDMS 13:43 Jeremias Allison DO is Referral Physician. snw 14:06 Patient has correct armband on for positive identification. Bed in low position. Call db light in reach. Side rails up X 1. Provided Education on: DISCHARGE. Warm blanket given. 14:06 Orthoglass splint: Sugar tong splint applied on right arm. Sling applied to right arm. em1 14:06 No provider procedures requiring assistance completed. Patient did not have IV access db during this emergency room visit. Administered Medications: 13:05 Drug: HYDROcodone-acetaminophen PO 5 mg-325 mg 1 tabs PO once Route: PO; ll1 14:09 Follow up: Response: No adverse reaction db Medication: 14:06 VIS not applicable for this client. db Outcome: 13:44 Discharge ordered by MD. snw 14:06 Discharged to home ambulatory, db 14:06 Condition: stable 14:06 Discharge instructions given to patient, Instructed on discharge instructions, follow up and referral plans. Prescriptions given X 1, 14:09 Patient left the ED. db Signatures: Dispatcher [employer] EDMS Tata Corrigan, BASHIR-C BAG MAKING MACHINE OPERATOR-Deborah Roach Eric em1 Rula Mercado, RN RN ll1 Ambreen Ross, RN RN db Corrections: (The following items were deleted from the chart) 12:34 12:32 Allergies: Aspirin; db db
--- NOTE | 2023-02-28 14:09 | RAD REPORT ---
EXAM DESCRIPTION: RAD - Forearm Right - 02/28/2023 1:36 pm CLINICAL HISTORY: Pain;Smash injury COMPARISON: No comparisons TECHNIQUE: Right forearm, 2 views. FINDINGS: Comminuted distal radius metaphysis fracture with volar apex angulation. Possible intra-ar ticular extension. Mildly displaced fracture at the base of the ulnar styloid. There is no dislocatio n or periosteal reaction noted. Soft tissue swelling about the wrist. No foreign body or other soft tissue abnormality. IMPRESSION: Distal radius fracture and fracture at the base of the ulnar styloid as above.
[2023-02-28 14:14] VITALS: TEMP 98.2
[2023-02-28 14:16] VITALS: BP 116/62; O2SAT 98
== END 2023-02-28 14:09 | disposition home or self-care (01) ==
LOC: ER 12:18
PROC: 2W3CX1Z Immobilization of Right Lower Arm using Splint (ICD-10-PCS; principal; 2023-02-28)
DX: S52.501A Unspecified fracture of the lower end of right radius, initial encounter for closed fracture (principal); W01.0XXA Fall on same level from slipping, tripping and stumbling without subsequent striking against object, initial encounter
CPT/HCPCS: 99283

== ENCOUNTER 2023-03-16 08:26 | Day surgery (SDC) | payer OTHER ==
[2023-03-16] MEDS ORDERED: CEFAZOLIN SODIUM 1 GM/VIAL ONE (08:57)
[2023-03-16] MEDS ORDERED: NA CHLORIDE 0.9% 1,000 ML ONE (08:57)
[2023-03-16 09:28] LABS: Absolute Lymphocytes (CBC) 1.3 K/uL (0.7-4.9); Lymphocytes % 23.1 % (15.3-44.8); MPV 7.3 fL (7.6-11.3); Platelets 294 thou/uL (152-406); RBC Red Blood Cell Count 4.34 M/uL (3.86-4.86)
[2023-03-16 09:29] LABS: Protime INR 1.07
--- NOTE | 2023-03-16 09:32 | RAD REPORT ---
EXAM DESCRIPTION: RAD - Chest Pa And Lat (2 Views) - 03/16/2023 9:26 am CLINICAL HISTORY: PREPROCEDURE SCREENING Chest pain. COMPARISON: Chest Pa And Lat (2 Views) dated 05/03/2020; Chest Single View dated 12/31/2018; CHEST PA AND LAT 2 VIEW dated 11/27/2013; CHEST PA AND LAT 2 VIEW dated 06/22/2012 TECHNIQUE: PA and lateral views of the chest were obtained. FINDINGS: The lungs are hyperexpanded compatible with COPD. The heart is upper limit of normal in si ze. No fracture or aggressive bony process. IMPRESSION: COPD without acute process identified. The USPSTF recommends annual screening for lung cancer with low-dose CT (LDCT) in adults aged 50 to 8 0 years who have a 20 pack-year smoking history and currently smoke or have quit within the past 15 y ears.
[2023-03-16] MEDS ORDERED: dexAMETHasone 10 MG/ML VIAL ONE (10:00)
[2023-03-16] MEDS ORDERED: LIDOCAINE 1% MPF 5 ML VIAL ONE ×2 (10:00→10:50)
[2023-03-16] MEDS ORDERED: FENTANYL CITR 100 MCG/2 ML ONE ×2 (10:00→10:54)
[2023-03-16] MEDS ORDERED: MIDAZOLAM HCL 2 MG/2 ML INJ ONE ×2 (10:01→10:52)
[2023-03-16] MEDS ORDERED: EPINEPHRINE 1 MG/ML VIAL ONE ×2 (10:01→10:50)
[2023-03-16] MEDS ORDERED: dexAMETHasone 4 MG/ML VIAL ONE (10:51)
[2023-03-16] MEDS ORDERED: ONDANSETRON 4 MG/2 ML VIAL ONE (11:01)
[2023-03-16] MEDS ORDERED: propofoL 200 MG/20 ML VIAL IV ONE (11:02)
[2023-03-16] MEDS ORDERED: KETOROLAC 30 MG/ML INJ ONE (11:34)
[2023-03-16] MEDS ORDERED: GLYCOPYRROLATE 0.2 MG/ML SYR ONE (11:51)
--- NOTE | 2023-03-16 12:41 | P.BOP ---
Preoperative diagnosis: right intraarticular distal radius fracture Postoperative diagnosis: right 3 part intraarticular distal radius fracture Primary procedure: ORIF right 3 part intraarticular distal radius fracture Post Graduate Internship: NONE,NONE Estimated blood loss: 5 cc Specimen: none Findings: see dictation Anesthesia: General Complications: None Implants: Acumed 3 hole narrow distal radius locking plate Fluids & blood products: per anesthesia record Transferred to: Recovery Room Condition: Good
--- NOTE | 2023-03-16 12:58 | RAD REPORT ---
EXAM DESCRIPTION: RAD - Fluoroscopy <1 Hour - 03/16/2023 12:51 pm CLINICAL HISTORY: ORIF RIGHT WRIST COMPARISON: None available. FINDINGS: Thirty Images were sent to PACS, documenting hardware positions during the right wrist ope n reduction and internal fixation procedure. No radiologist was available for the procedure, nor will any image interpretation he provided. Please refer to the procedural report for additional details. Fluoroscopy time: 0.3 Minutes. IMPRESSION: Documentation of fluoroscopy utilization as above.
[2023-03-16] MEDS: HYDROMORPHONE HCL 1 MG/ML INJ ONE ×2 (13:15→13:20)
[2023-03-16] MEDS ORDERED: HYDROMORPHONE HCL 1 MG/ML INJ ONE (13:21)
--- NOTE | 2023-03-16 13:33 | RAD REPORT ---
EXAM DESCRIPTION: RAD - Wrist Right 2 View - 03/16/2023 1:23 pm CLINICAL HISTORY: S/P ORIF R WRIST COMPARISON: Forearm Right dated 02/28/2023 TECHNIQUE: Right wrist, 3 views. FINDINGS: Internally fixated distal radius fracture with volar plate and screws. Mildly displaced fr acture tip of the ulnar styloid is stable. There is no dislocation or periosteal reaction noted. No foreign body. Limited soft tissue gas. Volar fiberglass splint IMPRESSION: Postoperative changes of internal fixation of comminuted distal radius fracture.
--- NOTE | 2023-03-16 13:39 | EKG ---
Test Date: 2023-03-16 Test Time: 09:41:46 Director Investment Banking: CHARLINE MEASUREMENT RESULTS: Intervals: Rate: 63 SD: 168 QRSD: 72 QT: 422 QTc: 431 [place]: P: 60 SD: 168 QRS: 7 T: 42 INTERPRETIVE STATEMENTS: Normal sinus rhythm Low voltage QRS Borderline ECG Compared to ECG 12/24/2014 15:51:01 Low QRS voltage now present Electronically Signed On 03-16-23 13:38:37 WARP CHANGER by Stefan Jack
[2023-03-16] MEDS ORDERED: HYDROCODONE/APAP 5/325 MG TAB ONE (13:53)
[2023-03-16 14:59] VITALS: BP 137/54; TEMP 97.4; O2SAT 92
== END 2023-03-16 14:50 | disposition home or self-care (01) ==
LOC: OR 08:26
PROVIDERS: ATTEND Orthopaedic Surgery Sports Medicine
PROC: 0PSH04Z Reposition Right Radius with Internal Fixation Device, Open Approach (ICD-10-PCS; principal; 2023-03-16 11:30)
DX: S52.571A Other intraarticular fracture of lower end of right radius, initial encounter for closed fracture (principal); E11.9 Type 2 diabetes mellitus without complications; I10 Essential (primary) hypertension; K21.9 Gastro-esophageal reflux disease without esophagitis; Z85.3 Personal history of malignant neoplasm of breast
CPT/HCPCS: 93005; 85025; 80048; 36415; 85610; 71046; 73100; 25609; J2704; J2001; J2250; J3010; J1170 ×2; J2405; J7030; J0690; C1713 ×2; 76000; J0171; J1100

== ENCOUNTER 2024-08-16 19:16 | Emergency (ER) | payer OTHER ==
--- NOTE | 2024-08-16 21:02 | RAD REPORT ---
EXAMINATION: ONE VIEW CHEST XR CLINICAL INDICATION: Female, 74 years old.,DYSPNEA TECHNIQUE: Frontal chest projection is submitted. Examination is limited by patient positioning and t echnique. COMPARISON: 03/16/2023 FINDINGS: The lungs are well inflated and clear. No pneumothorax or sizable effusion. The heart is normal in s ize. Mediastinal contours are unremarkable. IMPRESSION: No acute intrathoracic abnormalities.
[2024-08-16 22:31] LABS: Urine Bacteria 20-50 /HPF (<20); Urine Bilirubin NEGATIVE (Negative); Urine Blood 1+ (Negative); Urine Clarity Extremely Turbid (Clear); Urine Color Light-Yellow (Yellow); Urine Crystals Unidentified Few /HPF (None Seen); Urine Culture Reflex Order NOT NEEDED; Urine Glucose NEGATIVE (Negative); Urine Ketones NEGATIVE (Negative); Urine Microscopic Reflex YN ORDER UMIC; Urine Mucus Slight /HPF (None Seen); Urine Nitrite 2+ (Negative); Urine Protein TRACE (Negative); Urine Urobilinogen Normal (Normal); Urine WBC <5 /HPF (<5); Urine Yeast (Budding) Trace /HPF (None Seen)
[2024-08-16 22:33] LABS: PT Prothrombin Time 12.8 SECONDS (10-13.0); Protime INR 1.13
[2024-08-16 22:36] LABS: Absolute Eosinophils 0.1 K/uL (0-0.5); Absolute Lymphocytes (CBC) 1.3 K/uL (0.7-4.9); Absolute Monocytes 0.4 K/uL (0.1-1.3); Absolute Neutrophil 2.1 K/uL (1.8-8.0); Basophils % 0.6 % (0-1.3); Eosinophils % 2.6 % (0-4.4); Hemoglobin 11.5 g/dL (12.0-15.0); Lymphocytes % 34.2 % (15.3-44.8); MCH 25.8 pg (27.0-35.0); MCHC 32.8 g/dL (32.0-36.0); MCV 78.5 fL (80-100); MPV 7.7 fL (7.6-11.3); Monocytes % 10.1 % (3.3-12.3); Neutrophils % 52.5 % (41.7-73.7); Nucleated Red Blood Cells % 0.2 % (0-0); Platelets 240 thou/uL (152-406); RBC Red Blood Cell Count 4.46 M/uL (3.86-4.86); Red Cell Distribution Width 17.1 % (12.1-15.2)
[2024-08-16 22:47] LABS: AST/SGOT 13 U/L (15-37); Albumin 3.7 g/dL (3.4-5.0); Albumin/Globulin Ratio 0.9 (1.1-1.8); Alkaline Phosphatase 75 U/L (45-117); Anion Gap 9.7 mEq/L (5.0-15.0); BUN Blood Urea Nitrogen 15 mg/dL (7-18); Bicarbonate 27 mEq/L (21-32); Bilirubin Total 0.2 mg/dL (0.2-1.0); Globulin 3.9 g/dL (2.3-3.5); Glomerular Filtration Rate 47 ml/min (=/>90); Glucose Level 94 mg/dL (74-106); Lipase 34 U/L (13-75); Magnesium 1.7 mg/dL (1.6-2.4); NT PRO-BNP 325 pg/mL (<450); Potassium 3.7 mEq/L (3.5-5.1); Protein, Total 7.6 g/dL (6.4-8.2); Sodium Level 139 mEq/L (136-145); Troponin High Sensitivity 12.8 pg/mL (<58.9)
[2024-08-16 22:49] LABS: Influenza A Ag Negative; Influenza B Ag Negative; SARS-CoV-2 Antigen Rapid Res Negative (Negative)
[2024-08-16 23:06] LABS: ALT/SGPT < 14 U/L (13-56); Bilirubin Direct < 0.2 mg/dL (0-0.2)
[2024-08-16] MEDS ORDERED: NA CHLORIDE 0.9% 2,000 ML ONE (23:08)
[2024-08-16] MEDS ORDERED: CEFTRIAXONE 1000 MG/VIAL ONE (23:08)
--- NOTE | 2024-08-16 23:11 | ER ---
Nurse's Notes [facility] Name: Cyndee Nuñez Age: 74 yrs Sex: Female : 1950 Arrival Date: 08/16/2024 Time: 19:16 Bed 20 Private MD: Diagnosis: UTI, cough, generalized weakness Presentation: 08/16 19:25 Chief complaint: Patient's son or daughter states: she started feeling fatigue on me1 Wednesday, cough and congestion that started yesterday and c/o sob w/exertion today. Denies fever. Coronavirus screen: Vaccine status: Patient reports receiving the 2nd dose of the covid vaccine. Ebola Screen: No symptoms or risks identified at this time. Initial Sepsis Screen: Does the patient meet any 2 criteria? No. Patient's initial sepsis screen is negative. Does the patient have a suspected source of infection? No. Patient's initial sepsis screen is negative. Risk Assessment: Do you want to hurt yourself or someone else? Patient reports no desire to harm self or others. Onset of symptoms was August 11, 2024. 19:25 Method Of Arrival: Ambulatory [facility] 19:25 Acuity: ZEE 3 me1 Triage Assessment: 19:27 General: Appears ill, well groomed, well developed, well nourished, Behavior is calm, me1 cooperative, appropriate for age. Pain: Denies pain. EENT: Reports nasal congestion since yesterday. Neuro: Level of Consciousness is awake, alert, obeys commands, Oriented to person, place, time, situation, Appropriate for age. Cardiovascular: Patient's skin is warm and dry. Respiratory: Reports shortness of breath on exertion cough that is since yesterday Onset: The symptoms/episode began/occurred yesterday, the patient has mild shortness of breath. GI: No signs and/or symptoms were reported involving the gastrointestinal system. : No signs and/or symptoms were reported regarding the genitourinary system. Derm: Skin is intact, is healthy with good turgor, Skin is pink, warm \T\ dry. Musculoskeletal: No signs and/or symptoms reported regarding the musculoskeletal system. Historical: - Allergies: 19:26 No Known Allergies; me1 - PMHx: 19:26 breast cancer; Diabetes - IDDM; Hypertension; me1 - PSHx: 19:26 RIGHT MASECTOMY; me1 - Immunization history:: Adult Immunizations up to date. - Infectious Disease History:: Denies. - Social history:: Smoking status: Patient/guardian denies using tobacco, but has a distant history of tobacco abuse. Screenin:45 [facility] ED Fall Risk Assessment (Adult) History of falling in the last 3 months, jj7 including since admission No falls in past 3 months (0 pts) Confusion or Disorientation No (0 pts) Intoxicated or Sedated No (0 pts) Impaired Gait No (0 pts) Mobility Assist Device Used No (0 pt) Altered Elimination No (0 pt) Score/Fall Risk Level 0 - 2 = Low Risk Oriented to surroundings, Maintained a safe environment, Educated pt \T\ family on fall prevention, incl call for assistance when getting out of bed, Assessed \T\ reinforced patient's understanding of fall precautions. Abuse screen: Denies threats or abuse. Nutritional screening: No deficits noted. Tuberculosis screening: No symptoms or risk factors identified. Assessment: 21:45 General: Appears in no apparent distress. comfortable, Behavior is calm, cooperative, jj7 appropriate for age. Pain: Denies pain. 21:45 Cardiovascular: Rhythm is regular Chest pain is denied. Respiratory: Reports shortness jj7 of breath cough that is non-productive, Airway is patent Trachea midline Respiratory effort is even, unlabored, Respiratory pattern is regular, symmetrical. 23:00 Reassessment: Patient and/or family updated on plan of care and expected duration. Pain jj7 level reassessed. Patient is alert, oriented x 3, equal unlabored respirations, skin warm/dry/pink. Patient states feeling better. Vital Signs: 19:25 BP 168 / 81; Pulse 74; Resp 19; Temp 98.1; Pulse Ox 93% on R/A; Weight 65.77 kg; Height me1 5 ft. 0 in. ; Pain 0/10; 22:15 BP 138 / 53; Pulse 69; Resp 18; Pulse Ox 95% ; jj7 23:00 BP 136 / 65; Pulse 65; Resp 18; Pulse Ox 95% ; jj7 08/17 00:07 BP 141 / 57; Pulse 63; Resp 20; Temp 97.8; Pulse Ox 95% ; jj7 08/16 19:25 Body Mass Index 28.32 (65.77 kg, 152.4 cm) me1 05/14 19:25 Pain Scale: Adult ma1 ED Course: 08/16 19:19 Patient arrived in ED. gm2 19:26 Triage completed. me1 19:26 Arm band placed on Patient placed in waiting room. me1 19:31 Ronn Bonilla MD is Attending Physician. [facility] 20:01 Attending Physician role handed off by Ronn Bonilla MD sp3 20:01 Madan Aragon MD is Attending Physician. sp3 20:26 XRAY Chest (1 view) In Process Unspecified. EDMS 21:45 Patient has correct armband on for positive identification. Bed in low position. Call jj7 light in reach. Side rails up X 1. Adult w/ patient. Provided Education on: USE OF CALL ALEXANDER. Warm blanket given. 21:50 Client placed on continuous cardiac and pulse oximetry monitoring. NIBP monitoring jj7 applied. school bus monitor on. Pulse ox on. NIBP on. 21:55 First set of blood cultures drawn by me. vk 22:10 Second set of blood cultures drawn by me. vk 22:12 Gilmar Alvarez, RN is Primary Nurse. jj7 22:22 Blood Culture Adult (2) Sent. vk 22:22 Lactate w/ 2H reflex if indic. Sent. vk 22:22 COVID-19 Ag + Flu A+B Ag Sent. vk 22:22 UA Rfx Judd Cult if indicated Sent. vk 22:22 Lipase Sent. vk 22:22 Basic Metabolic Panel Sent. vk 22:22 CBC with Diff Sent. vk 22:23 LFT's Sent. vk 22:23 Troponin HS Sent. vk 22:23 PT-INR Sent. vk 22:23 Magnesium Sent. vk 22:23 NT PRO-BNP Sent. vk 22:23 Initial lab(s) drawn, by me, sent to lab. Urine collected: clean catch specimen, clear, vk EKG done, by ED staff, COVID swab sent to lab. Inserted saline lock: 20 gauge in right antecubital area, using aseptic technique. Blood collected. Flushed with 10 mL NS. 22:26 Troponin HS Sent. vk 22:26 PT-INR Sent. vk 22:26 NT PRO-BNP Sent. vk 22:27 Magnesium Sent. vk 22:27 LFT's Sent. vk 22:27 CBC with Diff Sent. vk 22:27 Basic Metabolic Panel Sent. vk 22:27 Lipase Sent. vk 22:27 UA Rfx Judd Cult if indicated Sent. vk 22:27 COVID-19 Ag + Flu A+B Ag Sent. vk 22:27 Lactate w/ 2H reflex if indic. Sent. vk 22:27 Blood Culture Adult (2) Sent. vk 08/17 00:09 No provider procedures requiring assistance completed. IV discontinued, intact, jj7 bleeding controlled, No redness/swelling at site. Pressure dressing applied. Administered Medications: 08/16 23:00 Drug: NS 0.9% IV (30 ml/kg) 30 ml/kg IV at bolus once; Sepsis Protocol; to be given as jj7 a bolus over 90 minutes Route: IV; Rate: bolus; Site: right antecubital; 08/17 00:09 Follow up: IV Status: Completed infusion jj7 08/16 23:00 Drug: Rocephin IV 1 grams IV at per protocol once; Given slow IV push per pharmacy jj7 instructions Route: IV; Rate: per protocol; Site: right antecubital; 23:54 Follow up: IV Status: Completed infusion jj7 Medication: 08/17 00:12 VIS not applicable for this client. jj7 Outcome: 08/16 23:10 Discharge ordered by MD. pang 08/17 00:12 Discharged to home ambulatory, via wheelchair, with family, bishop Condition: improved Discharge instructions given to patient, family, Instructed on discharge instructions, follow up and referral plans. medication usage, Demonstrated understanding of instructions, follow-up care, medications, Prescriptions given X 2, 00:13 Patient left the ED. jj7 Signatures: Dispatcher [employer] Ronn Chavira MD MD cha Patel, Setul, MD MD sp3 Gilmar Alvarez RN RN jIlana Costa RN RN 1 Ana Romero Vivian vk Corrections: (The following items were deleted from the chart) 08/16 19:27 19:26 PMHx: ADD/ADHD; me1 me1 22:26 22:24 Second set of blood cultures drawn vk vk 08/17 00:03 08/16 21:45 Pain: Denies pain. jj7 jj7 08/17 00:04 00:02 Cardiovascular: Rhythm is regular Chest pain is denied jj7 jj7 00:04 00:02 Respiratory: Reports shortness of breath cough that is non-productive, Airway is jj7 patent Trachea midline Respiratory effort is even, unlabored, Respiratory pattern is regular, symmetrical, jj7
--- NOTE | 2024-08-16 23:11 | EDPHYS ---
Physician Documentation [facility] Name: Cyndee Nuñez Age: 74 yrs Sex: Female : 1950 Arrival Date: 08/16/2024 Time: 19:16 Bed 20 Private MD: ED Physician Madan Aragon HPI: 08/16 22:38 This 74 yrs old Female presents to ER via Ambulatory with complaints of sp3 Shortness Of Breath, General Weakness. 22:38 74-year-old female with history of diabetes, hypertension, prior breast cancer status sp3 postmastectomy not currently on any chemo or radiation regimen, presents to the ED with chief complaint cough, congestion and generalized weakness and fatigue. Symptoms been going on for the last 2 to 3 days. She denies any fever, headache, neck pain, chest pain, shortness of breath, abdominal pain, nausea, vomiting or diarrhea, syncope, near syncope, bleeding, melena, known sick contacts, travel history, prolonged immobilization, or any other signs or symptoms on ROS at this time.. Historical: - Allergies: 19:26 No Known Allergies; me1 - PMHx: 19:26 breast cancer; Diabetes - IDDM; Hypertension; me1 - PSHx: 19:26 RIGHT MASECTOMY; me1 - Immunization history:: Adult Immunizations up to date. - Infectious Disease History:: Denies. - Social history:: Smoking status: Patient/guardian denies using tobacco, but has a distant history of tobacco abuse. ROS: 22:39 Constitutional: Negative for fever, chills, and weight loss, Eyes: Negative for injury, sp3 pain, redness, and discharge, ENT: Negative for injury, pain, and discharge, Neck: Negative for injury, pain, and swelling, Cardiovascular: Negative for chest pain, palpitations, and edema, Abdomen/GI: Negative for abdominal pain, nausea, vomiting, diarrhea, and constipation, Back: Negative for injury and pain, MS/Extremity: Negative for injury and deformity, Skin: Negative for injury, rash, and discoloration, Neuro: Negative for headache, weakness, numbness, tingling, and seizure, Psych: Negative for depression, anxiety, suicide ideation, homicidal ideation, and hallucinations, Allergy/Immunology: Negative for hives, rash, and allergies, Endocrine: Negative for neck swelling, polydipsia, polyuria, polyphagia, and marked weight changes, Hematologic/Lymphatic: Negative for swollen nodes, abnormal bleeding, and unusual bruising, 22:39 All other systems are negative, Exam: 22:39 Constitutional: This is a well developed, well nourished patient who is awake, alert, sp3 and in no acute distress. Head/Face: Normocephalic, atraumatic. Eyes: Pupils equal round and reactive to light, extra-ocular motions intact. Lids and lashes normal. Conjunctiva and sclera are non-icteric and not injected. Cornea within normal limits. Periorbital areas with no swelling, redness, or edema. ENT: Nares patent. No nasal discharge, no septal abnormalities noted. External auditory canals are clear. Oropharynx with no redness, swelling, or masses, exudates, or evidence of obstruction, uvula midline. Mucous membranes moist. Neck: Trachea midline, no thyromegaly or masses palpated, and no cervical lymphadenopathy. Supple, full range of motion without nuchal rigidity, or vertebral point tenderness. No Meningismus. Chest/axilla: Normal chest wall appearance and motion. Nontender with no deformity. No lesions are appreciated. Cardiovascular: Regular rate and rhythm with a normal S1 and S2. No gallops, murmurs, or rubs. Normal PMI, no JVD. No pulse deficits. Abdomen/GI: Soft, non-tender, with normal bowel sounds. No distension or tympany. No guarding or rebound. No evidence of tenderness throughout. Back: No spinal tenderness. No costovertebral tenderness. Full range of motion. Skin: Warm, dry with normal turgor. Normal color with no rashes, no lesions, and no evidence of cellulitis. MS/ Extremity: Pulses equal, no cyanosis. Neurovascular intact. Full, normal range of motion. Neuro: Awake and alert, GCS 15, oriented to person, place, time, and situation. Cranial nerves II-XII grossly intact. Motor strength 5/5 in all extremities. Sensory grossly intact. Cerebellar exam normal. Normal gait. Psych: Awake, alert, with orientation to person, place and time. Behavior, mood, and affect are within normal limits. 22:39 Respiratory: Active cough noted. No Rales, wheezing or other abnormalities noted. Respiratory rate at 18. Pulse oxygenation on room air at 95%., 22:41 ECG was reviewed by the Attending Physician. EKG demonstrates normal sinus rhythm at 67 sp3 bpm with normal intervals, normal QRS, normal axis, normal ST/T-segment's without evidence of acute ischemia. Vital Signs: 19:25 BP 168 / 81; Pulse 74; Resp 19; Temp 98.1; Pulse Ox 93% on R/A; Weight 65.77 kg; Height me1 5 ft. 0 in. ; Pain 0/10; 22:15 BP 138 / 53; Pulse 69; Resp 18; Pulse Ox 95% ; jj7 23:00 BP 136 / 65; Pulse 65; Resp 18; Pulse Ox 95% ; j7 08/17 00:07 BP 141 / 57; Pulse 63; Resp 20; Temp 97.8; Pulse Ox 95% ; 7 08/16 19:25 Body Mass Index 28.32 (65.77 kg, 152.4 cm) nj1 08/16 19:25 Pain Scale: Adult me1 MDM: 08/16 19:31 Medical Screening Exam initiated rodger 22:40 Data reviewed: vital signs, nurses notes, old medical records, lab test result(s), EKG, sp3 radiologic studies. ED course: 74-year-old female with cough and fatigue. Differential diagnosis includes viral syndrome, influenza, COVID-19, bronchitis, pneumonia, acute coronary syndrome, CHF, electrolyte abnormality, among others. Workup will include chest x-ray, EKG, general labs, viral swabs and general supportive care. Vital signs currently normal patient is in no acute distress. Chest x-ray is negative. Remainder of workup pending. Disposition pending workup and patient course.. 23:09 ED course: UA demonstrates positive infection. Rocephin was already given by daytime sp3 physician. We will discharge on p.o. Bactrim to cover any UTI and a subset of pulmonary pathogens. Follow-up with PCP as needed. Vital signs remain normal.. 08/16 19:34 Order name: Basic Metabolic Panel; Complete Time: 23:08 [facility] 08/16 19:34 Order name: CBC with Diff; Complete Time: 23:08 [facility] 08/16 19:34 Order name: LFT's; Complete Time: 23:08 [facility] 08/16 19:34 Order name: Magnesium; Complete Time: 23:08 [facility] 08/16 19:34 Order name: NT PRO-BNP; Complete Time: 23:08 [facility] 08/16 19:34 Order name: PT-INR; Complete Time: 23:08 [facility] 08/16 19:34 Order name: Troponin HS; Complete Time: 23:08 [facility] 08/16 19:34 Order name: Lipase; Complete Time: 23:08 [facility] 08/16 19:34 Order name: UA Rfx Judd Cult if indicated; Complete Time: 23:08 [facility] 08/16 19:34 Order name: COVID-19 Ag + Flu A+B Ag; Complete Time: 23:08 [facility] 08/16 19:34 Order name: Lactate w/ 2H reflex if indic.; Complete Time: 23:08 [facility] 08/16 19:34 Order name: Blood Culture Adult (2) 08/16 19:34 Order name: XRAY Chest (1 view); Complete Time: 21:48 [facility] 08/16 19:34 Order name: EKG; Complete Time: 19:35 [facility] 08/16 19:34 Order name: Cardiac monitoring; Complete Time: 22:12 [facility] 08/16 19:34 Order name: EKG - Nurse/Tech; Complete Time: 22:12 [facility] 08/16 19:34 Order name: IV Saline Lock; Complete Time: 22:22 [facility] 08/16 19:34 Order name: Labs collected and sent; Complete Time: 22:22 [facility] 08/16 19:34 Order name: O2 Per Protocol; Complete Time: 22:26 [facility] 08/16 19:34 Order name: O2 Sat Monitoring; Complete Time: 22:26 [facility] Administered Medications: 23:00 Drug: NS 0.9% IV (30 ml/kg) 30 ml/kg IV at bolus once; Sepsis Protocol; to be given as jj7 a bolus over 90 minutes Route: IV; Rate: bolus; Site: right antecubital; 08/17 00:09 Follow up: IV Status: Completed infusion jj7 08/16 23:00 Drug: Rocephin IV 1 grams IV at per protocol once; Given slow IV push per pharmacy jj7 instructions Route: IV; Rate: per protocol; Site: right antecubital; 23:54 Follow up: IV Status: Completed infusion jj7 Disposition Summary: 08/16/24 23:10 Discharge Ordered Notes: Location: Home sp3 Condition: Stable sp3 Diagnosis - UTI, cough, generalized weakness sp3 Followup: sp3 - With: Private Physician - When: Upon discharge from the Emergency Department - Reason: Recheck today's complaints, Continuance of care Discharge Instructions: - Discharge Summary Sheet sp3 - Urinary Tract Infection, Adult sp3 - Cough, Adult sp3 Forms: - Medication Reconciliation Form sp3 - Antibiotic Education sp3 - Prescription Opioid Use sp3 - Patient Portal Instructions sp3 - Leadership Thank You Letter sp3 Prescriptions: - Tessalon Perles 100 mg Oral Capsule - take 1 capsule ORAL route every 8 hours As needed; 15 capsule; Refills: 0, sp3 Product Selection Permitted - Bactrim DS 800-160 mg Oral tablet - take 1 tablet ORAL route every 12 hours for 5 days; 10 tablet; Refills: 0, sp3 Product Selection Permitted Signatures: Dispatcher [employer] EDRonn Boyce MD MD cha Patel, Setul, MD MD sp3 Gilmar Alvarez, RN RN jj7 Ilana Shafer RN RN me1 Corrections: (The following items were deleted from the chart) 19:27 19:26 PMHx: ADD/ADHD; me1 me1 19:35 19:35 BASIC METABOLIC PANEL+C.LAB.BRZ ordered. EDMS EDMS 19:35 19:35 CBC+H.LAB.BRZ ordered. EDMS EDMS 19:35 19:35 HEPATIC FUNCTION+C.LAB.BRZ ordered. EDMS EDMS 19:35 19:35 MAGNESIUM+C.LAB.BRZ ordered. EDMS EDMS 19:35 19:35 PROBNP+C.LAB.BRZ ordered. EDMS EDMS 19:35 19:35 PROTIME (+INR)+COAG.LAB.BRZ ordered. EDMS EDMS 19:35 19:35 Troponin High Sensitivity+C.LAB.BRZ ordered. EDMS EDMS 19:35 19:35 LIPASE+C.LAB.BRZ ordered. EDMS EDMS 19:35 19:35 UA Rfx Judd Cult if indicated+U.LAB.BRZ ordered. EDMS EDMS 19:35 19:35 COVID-19 Ag + Flu A+B Ag+I.LAB.BRZ ordered. EDMS EDMS 19:35 19:35 LACTATE+C.LAB.BRZ ordered. EDMS EDMS 19:35 19:35 BLOOD CULTURE*+BA.LAB.BRZ ordered. EDMS EDMS
[2024-08-17 01:13] VITALS: O2SAT 95
[2024-08-17 01:17] VITALS: BP 141/57; TEMP 97.8
--- NOTE | 2024-08-21 16:58 | EKG ---
Test Date: 2024-08-16 Test Time: 22:05:54 Outside Sales Advertising Executive: MM MEASUREMENT RESULTS: Intervals: Rate: 67 AK: 162 QRSD: 70 QT: 440 QTc: 464 Renovo: P: 70 AK: 162 QRS: 49 T: 68 INTERPRETIVE STATEMENTS: Normal sinus rhythm Septal infarct, age undetermined Abnormal ECG Compared to ECG 03/16/2023 09:41:46 Myocardial infarct finding now present Electronically Signed On 08-21-24 16:51:49 CDT by Lebron Black
== END 2024-08-17 00:13 | disposition home or self-care (01) ==
LOC: ER 19:16
DX: N39.0 Urinary tract infection, site not specified (principal); R05.9 Cough, unspecified; E11.9 Type 2 diabetes mellitus without complications; I10 Essential (primary) hypertension; Z85.3 Personal history of malignant neoplasm of breast; Z90.11 Acquired absence of right breast and nipple; Z11.52 Encounter for screening for COVID-19
CPT/HCPCS: 96365; 96368; 93005; 87040 ×2; 85025; 81001; 80048; 36415; 83735; 85610; 80076; 83605; 84484; 83690; 83880; 71045; 99285; 87428; J7030; J0696

== ENCOUNTER 2024-08-18 09:07 | Emergency (ER) | payer OTHER ==
[2024-08-18 10:22] LABS: Absolute Lymphocytes (CBC) 1.1 K/uL (0.7-4.9); Absolute Monocytes 0.3 K/uL (0.1-1.3); Absolute Neutrophil 2.5 K/uL (1.8-8.0); Basophils % 0.3 % (0-1.3); Eosinophils % 0.9 % (0-4.4); Hematocrit 33.8 % (36.0-45.0); Hemoglobin 11.1 g/dL (12.0-15.0); MCH 25.5 pg (27.0-35.0); MCHC 32.7 g/dL (32.0-36.0); MCV 77.9 fL (80-100); MPV 7.2 fL (7.6-11.3); Monocytes % 7.4 % (3.3-12.3); Neutrophils % 63.4 % (41.7-73.7); Nucleated Red Blood Cells % 0.1 % (0-0); Platelets 266 thou/uL (152-406); RBC Red Blood Cell Count 4.34 M/uL (3.86-4.86); Red Cell Distribution Width 16.7 % (12.1-15.2)
[2024-08-18 11:00] LABS: Anion Gap 10.7 mEq/L (5.0-15.0); Potassium 3.7 mEq/L (3.5-5.1); Thyroid Stimulating Hormone 1.33 uIU/mL (0.358-3.740); Troponin High Sensitivity 7.6 pg/mL (<58.9)
--- NOTE | 2024-08-18 11:35 | RAD REPORT ---
EXAMINATION: ONE VIEW CHEST XR CLINICAL INDICATION: Female, 74 years old.,DYSPNEA TECHNIQUE: Frontal chest projection is submitted. Examination is limited by patient positioning and t echnique. COMPARISON: 08/16/2024 FINDINGS: The lungs are well inflated and clear. No pneumothorax or sizable effusion. The heart is normal in s ize. Mediastinal contours are unremarkable. IMPRESSION: No acute intrathoracic abnormalities.
--- NOTE | 2024-08-18 17:09 | EDPHYS ---
Physician Documentation [facility] [place] Name: Cyndee Nuñez Age: 74 yrs Sex: Female : 1950 Arrival Date: 08/18/2024 Time: 09:07 Bed 13 Private MD: ED Physician Modesto Lau HPI: 08/18 09:44 This 74 yrs old Female presents to ER via Wheelchair with complaints of bo1 Shortness Of Breath, Fatigue. 09:44 The patient has shortness of breath with light activity, and the patient has a history bo1 of CAD with a stent - 2 years ago. Onset: The symptoms/episode began/occurred gradually, 2 week(s) ago. The patient's shortness of breath is aggravated by light activity, walking. Associated signs and symptoms: Pertinent positives: Fatigue and "tiredness". The patient has been recently seen at the [facility] Emergency Department, this week, On Wednesday PM - pt was sent home and dx with UTI on PO abx, not better in terms of the SOB/fatigue.. No leg swelling or fever. Recent covid was negative.. 17:00 Severity of symptoms: At their worst the symptoms were mild 3 day(s) ago. Pt's daughter bo1 was asking about the pt being "anxious" as the spouse is in the hospital [facility] and not expected to be discharged any day soon. Pt has been "worried.". Historical: - Allergies: 09:23 No Known Allergies; hb - PMHx: 09:23 breast cancer; Hypertension; Diabetes - IDDM; hb - PSHx: 09:23 RIGHT MASECTOMY; hb - Immunization history:: Adult Immunizations up to date. - Infectious Disease History:: Denies. - Social history:: Smoking status: Patient/guardian denies using tobacco, but has a distant history of tobacco abuse. ROS: 17:01 Constitutional: Negative for fever, chills, and weight loss. bo1 17:01 Constitutional: Negative for chills, fever, 17:01 Neck: Negative for pain with movement, pain at rest, 17:01 Cardiovascular: Negative for chest pain, palpitations, 17:01 Respiratory: Positive for shortness of breath, 17:01 Abdomen/GI: Negative for abdominal pain, nausea and vomiting, 17:01 MS/extremity: Negative for pain, rash, swelling, 17:01 Skin: Negative for rash, swelling, 17:01 Neuro: Negative for altered mental status, acute changes, 17:01 All other systems are negative, Exam: 11:28 ECG was reviewed by the Attending Physician. bo1 17:02 Constitutional: This is a well developed, well nourished patient who is awake, alert, bo1 and in no acute distress. 17:02 Constitutional: The patient appears in no acute distress, alert, awake, comfortable, non-toxic, 17:02 Eyes: Sclera: icterus, is not appreciated, 17:02 Neck: External neck: is normal, no acute changes, 17:02 Cardiovascular: Rate: normal, Rhythm: regular, Pulses: no pulse deficits are appreciated, 17:02 Respiratory: Exam negative for the patient does not display signs of respiratory distress, Respirations: normal, no acute changes, Breath sounds: are clear throughout, 17:02 Abdomen/GI: Inspection: abdomen appears normal, Palpation: abdomen is soft and non-tender, 17:02 Musculoskeletal/extremity: Extremities: all appear grossly normal, with no appreciated pain with palpation, DVT Exam: No signs of deep vein thrombosis. 17:02 Skin: no rash present. 17:02 Neuro: Exam negative for acute changes, focal neuro deficits, 17:02 Psych: exam not indicated, Behavior/mood is pleasant, cooperative, Affect is calm, Pt speaks Russian only and the daughter is the cashier receptionist. Vital Signs: 09:21 BP 141 / 70; Pulse 77; Resp 20; Temp 97.8(O); Pulse Ox 90% on R/A; Weight 65.77 kg; hb Height 5 ft. 1 in. ; Pain 0/10; 11:00 BP 132 / 68; Pulse 65; Resp 20; Pulse Ox 99% on 2 lpm NC; me1 12:00 BP 127 / 62; Pulse 64; Resp 18; Pulse Ox 97% on 2 lpm NC; me1 13:00 BP 102 / 80; Pulse 69; Resp 17; Pulse Ox 98% on 2 lpm NC; me1 14:00 BP 149 / 68; Pulse 69; Resp 20; Pulse Ox 98% 2 lpm ; me1 15:00 BP 173 / 73; Pulse 76; Resp 22; Pulse Ox 98% on 2 lpm NC; me1 16:00 BP 143 / 72; Pulse 64; Resp 21; Pulse Ox 99% on 2 lpm NC; me1 17:00 BP 162 / 63; Pulse 69; Resp 19; Pulse Ox 96% on 2 lpm NC; me1 17:27 BP 139 / 67; Pulse 67; Resp 12; Pulse Ox 94% on R/A; me1 09:21 Body Mass Index 27.40 (65.77 kg, 154.94 cm) hb 09:21 Pain Scale: Adult hb MDM: 09:37 Medical Screening Exam initiated bo1 17:04 Differential diagnosis: Anemia Mild iron deficiency, low WBC. Pending reading of the bo1 Echo of the heart by the power tong operator Dr Guero SIMMONS (Wednesday at the earliest.) Otherwise xray is negative of the chest, normal troponin and d-dimer. Data reviewed: vital signs, lab test result(s), cardiac enzymes, CBC, electrolytes, TSH. Consideration of Admission/Observation Patient was admitted/placed on observation. No inpt condition or rationale present. OP follow-up planned. Agreed by pt and family.. Historians other than the Patient: Daughter/Son: Daughter. ED course: No indication for acute hosp - admit/obs. Pending Echo reading by Dr Guero SIMMONS (Wednesday.). 08/18 09:42 Order name: Basic Metabolic Panel; Complete Time: 11:20 [facility] 08/18 09:42 Order name: CBC with Diff; Complete Time: 11:20 bo08/18 09:42 Order name: D-Dimer; Complete Time: 11:20 bo08/18 09:42 Order name: NT PRO-BNP; Complete Time: 11:20 bo 08/18 09:42 Order name: Troponin HS; Complete Time: 11:20 bo08/18 10:43 Order name: Thyroid Stimulating Hormone; Complete Time: 11:20 EDMS 08/18 09:42 Order name: XRAY Chest (1 view); Complete Time: 11:59 [facility] 08/18 09:42 Order name: Cardiac monitoring; Complete Time: 11:21 bo 08/18 09:42 Order name: EKG - Nurse/Tech; Complete Time: 11:23 bo 08/18 09:42 Order name: IV Saline Lock; Complete Time: 11:21 [facility] 08/18 09:42 Order name: Labs collected and sent; Complete Time: 11: bo1 08/18 09:42 Order name: O2 Per Protocol; Complete Time: : bo1 08/18 09:42 Order name: O2 Sat Monitoring; Complete Time: : bo1 EC:28 Rate is 68 beats/min. Rhythm is regular. QRS [place] is Normal. CO interval is normal. QRS bo1 interval is normal. QT interval is normal. No Q waves. T waves are Normal. No ST changes noted. Clinical impression: Normal ECG. Interpreted by me. Reviewed by me. Administered Medications: No medications were administered Disposition Summary: 08/18/24 17:09 Discharge Ordered Notes: Location: Home bo1 Problem: an ongoing problem bo1 Symptoms: are unchanged bo1 Condition: Stable bo1 Diagnosis - Dyspnea, unspecified bo1 - Other fatigue bo1 - Anemia, unspecified bo1 Followup: bo1 - With: Stefan Jack MD - When: Upon discharge from the Emergency Department - Reason: Recheck today's complaints, Continuance of care Discharge Instructions: - Discharge Summary Sheet bo1 - Anemia bo1 Forms: - Medication Reconciliation Form bo1 - Antibiotic Education bo1 - Prescription Opioid Use bo1 - Patient Portal Instructions bo1 - Leadership Thank You Letter bo1 Signatures: Dispatcher [employer] EDNorma Alvarado RN RN Modesto Lau MD MD bo1 Corrections: (The following items were deleted from the chart) 09:24 09:23 Social history: Smoking status: Patient denies any tobacco usage or history of. hbhb 09:43 09:43 BASIC METABOLIC PANEL+C.LAB.BRZ ordered. EDMS EDMS 09:43 09:43 CBC+H.LAB.BRZ ordered. EDMS EDMS 09:43 09:43 D-DIMER+COAG.LAB.BRZ ordered. EDMS EDMS 09:43 09:43 PROBNP+C.LAB.BRZ ordered. EDMS EDMS 09:43 09:43 Troponin High Sensitivity+C.LAB.BRZ ordered. EDMS EDMS 09:43 09:43 Chest Single View+RAD.RAD.BRZ ordered. EDMS EDMS 10:43 09:47 THYROID STIMULAT HORMONE+C.LAB.BRZ ordered. EDMS EDMS 11:22 11:22 EC Echo M-Mode 2D Only+ECHO.RAD.BRZ ordered. EDMS EDMS
--- NOTE | 2024-08-18 17:09 | ER ---
Nurse's Notes [facility] Name: Cyndee Nuñez Age: 74 yrs Sex: Female : 1950 Arrival Date: 08/18/2024 Time: 09:07 Bed 13 Private MD: Diagnosis: Dyspnea, unspecified;Other fatigue;Anemia, unspecified Presentation: 08/18 09:21 Chief complaint: Worsening SOB, cough, and congestion x 1 week. Coronavirus screen: hb Client presents with at least one sign or symptom that may indicate coronavirus-19. Provider contacted for isolation considerations. Ebola Screen: No symptoms or risks identified at this time. Initial Sepsis Screen: Does the patient meet any 2 criteria? No. Patient's initial sepsis screen is negative. Does the patient have a suspected source of infection? No. Patient's initial sepsis screen is negative. Risk Assessment: Do you want to hurt yourself or someone else? Patient reports no desire to harm self or others. Onset of symptoms was August 11, 2024. 09:21 Method Of Arrival: Wheelchair hb 09:21 Acuity: ZEE 2 hb Triage Assessment: 09:24 General: Appears. hb 17:35 General: Appears Behavior is anxious. Respiratory: Reports shortness of breath. me1 Respiratory: Onset: The symptoms/episode began/occurred at an unknown time. the patient has moderate shortness of breath. Historical: - Allergies: 09:23 No Known Allergies; hb - PMHx: 09:23 breast cancer; Hypertension; Diabetes - IDDM; hb - PSHx: 09:23 RIGHT MASECTOMY; hb - Immunization history:: Adult Immunizations up to date. - Infectious Disease History:: Denies. - Social history:: Smoking status: Patient/guardian denies using tobacco, but has a distant history of tobacco abuse. Screenin:00 [facility] ED Fall Risk Assessment (Adult) History of falling in the last 3 months, jl7 including since admission No falls in past 3 months (0 pts) Confusion or Disorientation No (0 pts) Intoxicated or Sedated No (0 pts) Impaired Gait No (0 pts) Mobility Assist Device Used No (0 pt) Altered Elimination No (0 pt) Score/Fall Risk Level 0 - 2 = Low Risk Oriented to surroundings, Maintained a safe environment. Abuse screen: Denies threats or abuse. Denies injuries from another. Nutritional screening: No deficits noted. Tuberculosis screening: No symptoms or risk factors identified. Assessment: 10:00 General: Appears in no apparent distress. uncomfortable, Behavior is calm, cooperative, jl7 appropriate for age. Pain: Denies pain. Neuro: Level of Consciousness is awake, alert, obeys commands, Oriented to person, place, time, situation. Cardiovascular: Rhythm is regular. Respiratory: Airway is patent Respiratory effort is even, unlabored, Respiratory pattern is regular, symmetrical, Breath sounds are coarse. Derm: Skin is pink, warm \T\ dry. Vital Signs: 09:21 BP 141 / 70; Pulse 77; Resp 20; Temp 97.8(O); Pulse Ox 90% on R/A; Weight 65.77 kg; hb Height 5 ft. 1 in. ; Pain 0/10; 11:00 BP 132 / 68; Pulse 65; Resp 20; Pulse Ox 99% on 2 lpm NC; me1 12:00 BP 127 / 62; Pulse 64; Resp 18; Pulse Ox 97% on 2 lpm NC; me1 13:00 BP 102 / 80; Pulse 69; Resp 17; Pulse Ox 98% on 2 lpm NC; me1 14:00 BP 149 / 68; Pulse 69; Resp 20; Pulse Ox 98% 2 lpm ; me1 15:00 BP 173 / 73; Pulse 76; Resp 22; Pulse Ox 98% on 2 lpm NC; me1 16:00 BP 143 / 72; Pulse 64; Resp 21; Pulse Ox 99% on 2 lpm NC; me1 17:00 BP 162 / 63; Pulse 69; Resp 19; Pulse Ox 96% on 2 lpm NC; me1 17:27 BP 139 / 67; Pulse 67; Resp 12; Pulse Ox 94% on R/A; me1 09:21 Body Mass Index 27.40 (65.77 kg, 154.94 cm) hb 09:21 Pain Scale: Adult hb ED Course: 09:09 Patient arrived in ED. mr 09:23 Triage completed. hb 09:23 Arm band placed on. hb 09:37 Modesto Lau MD is Attending Physician. bo1 09:45 Belle Merrill RN is Primary Nurse. jl7 10:00 Patient has correct armband on for positive identification. Bed in low position. Call jl7 light in reach. Side rails up X2. 10:00 Client placed on continuous cardiac and pulse oximetry monitoring. NIBP monitoring jl7 applied. manager investment on. Pulse ox on. 10:00 Warm blanket given. jl7 10:00 Provided Education on: POC. Verbalized understanding.. me1 10:00 Initial lab(s) drawn, by me, sent to lab. EKG done, by ED staff, reviewed by Modesto Lau MD. Inserted saline lock: 20 gauge in right wrist, using aseptic technique. 10:37 XRAY Chest (1 view) In Process Unspecified. EDMS 17:08 Stefan Jack MD is Referral Physician. bo1 17:34 No provider procedures requiring assistance completed. IV discontinued, intact, me1 bleeding controlled, No redness/swelling at site. Pressure dressing applied. Administered Medications: No medications were administered Medication: 10:00 VIS not applicable for this client. jl7 Outcome: 17:09 Discharge ordered by . bo1 17:34 Discharged to home via wheelchair, with family, me1 17:34 Condition: stable 17:34 Discharge instructions given to patient, family, Instructed on discharge instructions, follow up and referral plans. Demonstrated understanding of instructions, follow-up care, 17:35 Patient left the ED. me1 Signatures: Dispatcher [employer] EDPR Charisse Ansari, Deion Reg mr Norma Hair, RN RN Belle Ovalle RN RN jl7 Eddleman, Michelle, RN RN me1 Modesto Lau MD MD bo1 Corrections: (The following items were deleted from the chart) 09:23 09:21 BP 141 / 70; Pulse 77bpm; Resp 24bpm; Pulse Ox 90% RA; Temp 97.8F Oral; 65.77 kg; hb Height 5 ft. 1 in.; BMI: 27.4; Pain 0/10, Adult; hb 09:24 09:23 Social history: Smoking status: Patient denies any tobacco usage or history of. hbhb 17:13 13:00 BP 102 / 80; Pulse 69bpm; Resp 17bpm; Pulse Ox 98%; me1 me1 17:13 16:00 BP 143 / 72; Pulse 64bpm; Resp 21bpm; Pulse Ox 99%; me1 me1 17:13 17:00 BP 162 / 63; Pulse 69bpm; Resp 19bpm; Pulse Ox 96%; me1 me1
[2024-08-18 17:43] VITALS: TEMP 97.8
[2024-08-18 17:53] VITALS: BP 139/67; O2SAT 94
--- NOTE | 2024-08-21 08:45 | ECHO ---
HEIGHT: 5 ft 1 in WEIGHT: 145 lb 0 oz DATE OF STUDY: 08/18/[address]: Modesto Lau MD 2-DIMENSIONAL: YES M.MODE: YES DOPPLER: YES COLOR FLOW: YES TDS: NO PORTABLE: YES DEFINITY: NO BUBBLE STUDY: NO DIAGNOSIS: SHORTNESS OF BREATH CARDIAC HISTORY: CATHERIZATION:YES SURGERY: NO PROSTHETIC VALVE: NO PACEMAKER: NO MEASUREMENTS (cm) DIASTOLIC (NORMALS) SYSTOLIC (NORMALS) IVSd 1.0 (0.6-1.2) LA Diam 2.4 (1.9-4.0) LVEF 50-55% LVIDd 3.0 (3.5-5.7) LVIDs 2.1 (2.0-3.5) %FS 31% LVPWd 1.1 (0.6-1.2) Ao Diam 2.4 (2.0-3.7) 2 DIMENSIONAL ASSESSMENT: RIGHT ATRIUM: NORMAL LEFT ATRIUM: NORMAL RIGHT VENTRICLE: NORMAL LEFT VENTRICLE: NORMAL TRICUSPID VALVE: ANATOMICALLY NORMAL MITRAL VALVE: NORMAL PULMONIC VALVE: NOT WELL VISUALIZED AORTIC VALVE: MILD CALCIFICATION PERICARDIAL EFFUSION: PERICARDIAL FAT PAD AORTIC ROOT: NORMAL LEFT VENTRICULAR WALL MOTION: NORMAL. DOPPLER/COLOR FLOW: NOT ACCESSED. COMMENTS: 1. NORMAL LEFT VENTRICULAR SYSTOLIC FUNCTION. LEFT VENTRICULAR EJECTION FRACTION 50-55%. NORMAL WALL MOTION. 2. NORMAL FILLING PRESSURE. TECHNOLOGIST: DIEUDONNE CALDWELL
--- NOTE | 2024-08-21 16:51 | EKG ---
Test Date: 2024-08-18 Test Time: 09:55:59 Electric Tripper Machine Operator: BRYANT MEASUREMENT RESULTS: Intervals: Rate: 68 MS: 158 QRSD: 68 QT: 432 QTc: 459 Mccleary: P: 99 MS: 158 QRS: 6 T: 46 INTERPRETIVE STATEMENTS: Normal sinus rhythm Normal ECG Compared to ECG 08/16/2024 22:05:54 Myocardial infarct finding no longer present Electronically Signed On 08-21-24 16:48:29 CDT by Lebron Black
== END 2024-08-18 17:35 | disposition home or self-care (01) ==
LOC: ER 09:07
DX: R06.00 Dyspnea, unspecified (principal); R53.83 Other fatigue; D64.9 Anemia, unspecified; E11.9 Type 2 diabetes mellitus without complications; I10 Essential (primary) hypertension
CPT/HCPCS: 36415; 71045; 80048; 83880; 84443; 84484; 85025; 85379; 93005; 93307; 99284